=== PATIENT | male | born 1960 | race Caucasian/White ===

== ENCOUNTER 2024-06-25 15:40 | Outpatient (CLI) | payer OTHER, SELFPAY ==
--- NOTE | ~2024-06-25 | XR_ITS ---
EXAMINATION: XR_CERV2-3V_CR DATE: 06/25/2024 15:58 INDICATION: Radiculopathy, cervical region. TECHNIQUE: 4 views of cervical spine were obtained. COMPARISON: None. FINDINGS: Bone alignment is normal. There are changes of anterior fusion procedure from C5 to C7 with healed interbody bone graft and anterior plate and screws. Vertebral body heights are normal. There is mildly decreased disc height at C4-C5. There is multilevel facet joint osteoarthritis, severe on t he right at C3-C4 and on the left at C4-C5. There is mild central canal stenosis at C4-C5. No prevert ebral soft tissue swelling. IMPRESSION: 1. Mild cervical spondylosis. 2. Anterior fusion procedure from C5 to C7. Reviewed, dictated and finalized at location A.
--- NOTE | ~2024-06-25 | XR_ITS ---
EXAM: XR shoulder LT min 2V DATE: 06/25/2024 15:58 HISTORY: M25.512 - Pain in left shoulder . COMPARISON: None available. FINDINGS: ACDF hardware. Normal mineralization. No fracture or dislocation. No lytic or blastic lesio n. Joint spaces are maintained. No erosion or periosteal change. Soft tissues within normal limits. IMPRESSION: Unremarkable left shoulder radiograph findings. Reviewed, dictated and finalized at location K.
== END 2024-06-25 15:41 ==
PROVIDERS: PCP Clinical Nurse Specialist; Visit Provider Clinical Nurse Specialist
DX: M25.512 Pain in left shoulder (principal); M47.22 Other spondylosis with radiculopathy, cervical region; Z98.1 Arthrodesis status
CPT/HCPCS: 72040; 73030

== ENCOUNTER 2024-06-28 07:05 | Outpatient (CLI) | payer OTHER, SELFPAY ==
[2024-06-28 07:24] LABS: Basophils Percent Auto 0.5 % (0.2-1.2); Eosinophils Absolute Auto 0.2 K/mm3 (0-0.3); Eosinophils Percent Auto 2.7 % (0-4.4); Hematocrit 44.1 % (42.0-52.0); Immature Granulocyte Absolute 0.02 K/mm3 (0.00-0.031); Immature Granulocyte Percent A 0.3 % (0-0.5); Lymphocytes Absolute Auto 1.33 K/mm3 (0.9-3.2); Mean Corpuscular Hemoglobin 32.9 pg (26-34); Mean Corpuscular Volume 96.7 fl (80-100); Monocytes Absolute Auto 0.6 K/mm3 (0.1-0.6); Neutrophils Absolute Auto 4.2 K/mm3 (1.3-6.7); Neutrophils Percent Auto 65.5 % (45.5-73.1); Platelet Count Result 142 k/mm3 (150-375); Red Blood Count 4.56 M/mm3 (4.6-6.20); Red Cell Distribution Width 13.6 % (11.5-14.5); White Blood Count 6.3 K/mm3 (4.5-10.0)
[2024-06-28 07:37] LABS: Alanine Aminotransferase 88 U/L (6-50); Alkaline Phosphatase 54 U/L (38-126); Anion Gap 8 mmol/L (4-12); Aspartate Amino Transferase 56 U/L (17-59); Bilirubin,Total 1.4 mg/dL (0.2-1.3); Blood Urea Nitrogen 17 mg/dL (9-20); Calcium 8.8 mg/dL (8.4-10.2); Carbon Dioxide 27 mmol/L (22-30); Chloride 102 mmol/L (98-107); Cholesterol 157 mg/dL (0-200); Estimated Glomerular Filt Rate > 60; Glucose 108 mg/dL (65-110); HDL Direct 35 mg/dL; Potassium 4.3 mmol/L (3.4-5.0); Sodium 137 mmol/L (137-145); Triglycerides 118 mg/dL (<150)
[2024-06-28 07:49] LABS: LDL Cholesterol Direct 103 mg/dL
[2024-06-28 08:07] LABS: Prostate Specific Antigen 0.4 ng/mL (< OR = 4.0)
[2024-07-02 15:58] LABS: Testosterone Free 98.3 pg/mL (35.0-155.0); Testosterone Total 539 ng/dL (250-1100)
== END 2024-06-28 07:06 | disposition home or self-care (01) ==
PROVIDERS: PCP Clinical Nurse Specialist; Visit Provider Clinical Nurse Specialist
DX: E29.1 Testicular hypofunction (principal); N52.9 Male erectile dysfunction, unspecified; Z13.29 Encounter for screening for other suspected endocrine disorder; Z13.220 Encounter for screening for lipoid disorders; F41.9 Anxiety disorder, unspecified; Z12.5 Encounter for screening for malignant neoplasm of prostate
CPT/HCPCS: 36415; 80053; 80061; 84153; 84402; 84403; 84443; 85025; G0103

== ENCOUNTER 2024-07-12 08:48 | Outpatient (CLI) | payer OTHER, SELFPAY ==
--- NOTE | ~2024-07-12 | US_ITS ---
Limited Abdominal Sonogram: Real-time sonographic imaging of the right upper quadrant was performed. Clinical History: Fatty liver Findings: The liver appears echogenic, with no evidence of mass lesion or bile duct dilatation. It m easures 18.1 cm in length. Main portal vein demonstrates normal direction of flow. The gallbladder is well distended, and appears normal with no evidence of gallstone or wall thickening. The common bile duct measures 3 mm. The visualized pancreas, aorta, and IVC are unremarkable. Right kidney measures 10.5 cm in length, without hydronephrosis or renal stone. Impression: Diffuse fatty infiltration of the liver, with associated hepatomegaly. Reviewed, dictated and finalized at location M. Impression: Diffuse fatty infiltration of the liver, with associated hepatomegaly.
== END 2024-07-12 08:49 | disposition home or self-care (01) ==
LOC: ANHIMG 08:51
PROVIDERS: PCP Clinical Nurse Specialist; Visit Provider Clinical Nurse Specialist
DX: K76.0 Fatty (change of) liver, not elsewhere classified (principal); R16.0 Hepatomegaly, not elsewhere classified
CPT/HCPCS: 76705

== ENCOUNTER 2024-07-29 07:01 | Outpatient (CLI) | payer OTHER, SELFPAY ==
--- NOTE | ~2024-07-29 | MR_ITS ---
EXAMINATION: MR cervical spine wo con DATE: 07/29/2024 07:38 INDICATION: Radiculopathy, cervical region. TECHNIQUE: Magnetic resonance imaging (MRI) of the cervical spine was performed without intravenous c ontrast. COMPARISON: Cervical spine radiographs 06/25/2024 FINDINGS: Alignment is normal. There are changes of anterior fusion procedure from C5 to C7 with heal ed interbody bone graft and anterior plate and screws. Vertebral body heights are normal. There is mi ldly decreased disc height at C4-C5. The spinal cord signal intensity is normal. The following disc l evels are specifically discussed: C2-C3: The disc does not extend beyond the endplate margin. There is mild left uncovertebral joint os teoarthritis. There is severe bilateral facet joint osteoarthritis. There is mild left neural foramin al stenosis. There is no central canal stenosis. C3-C4: There is a central protrusion. There is mild right and moderate left uncovertebral joint osteo arthritis. There is severe right and moderate left facet joint osteoarthritis. There is mild bilatera l neural foraminal stenosis. There is no central canal stenosis. C4-C5: The disc is bulging. There is moderate right and severe left uncovertebral joint osteoarthriti s. There is severe bilateral facet joint osteoarthritis. There is mild right and moderate left neural foraminal stenosis. There is mild central canal stenosis. C5-C6: There is moderate bilateral uncovertebral joint hypertrophy. There is no facet joint hypertrop hy. There is mild bilateral neural foraminal stenosis. There is no central canal stenosis. C6-C7: There is mild bilateral uncovertebral joint hypertrophy. There is no facet joint hypertrophy. There is mild right neural foraminal stenosis. There is mild central canal stenosis. C7-T1: There is a central protrusion. There is mild bilateral uncovertebral joint osteoarthritis. The re is moderate right and severe left facet joint osteoarthritis. There is mild bilateral neural yvan inal stenosis. There is no central canal stenosis. IMPRESSION: 1. Moderate cervical spondylosis. 2. Anterior fusion procedure from C5 to C7. Reviewed, dictated and finalized at location A.
== END 2024-07-29 07:02 | disposition home or self-care (01) ==
LOC: MICIMG 07:01
PROVIDERS: PCP Clinical Nurse Specialist; Visit Provider Clinical Nurse Specialist
DX: M47.22 Other spondylosis with radiculopathy, cervical region (principal); Z98.1 Arthrodesis status
CPT/HCPCS: 72141

== ENCOUNTER 2024-12-17 07:43 | Outpatient (CLI) | payer OTHER, SELFPAY ==
--- NOTE | ~2024-12-17 | US_ITS ---
Limited Abdominal Sonogram: Real-time sonographic imaging of the right upper quadrant was performed. Clinical History: Diaphragmatic hernia Findings: The liver appears echogenic, with no evidence of mass lesion or bile duct dilatation. Main portal vein demonstrates normal direction of flow. The gallbladder is well distended, and appears no rmal with no evidence of gallstone or wall thickening. The common bile duct measures 4 mm. The visua lized pancreas, aorta, and IVC are unremarkable. Right kidney measures 10.8 cm in length, without russell dence of hydronephrosis or stone. Impression: Diffuse fatty infiltration of liver. Reviewed, dictated and finalized at location M. SANDER Impression: Diffuse fatty infiltration of liver.
== END 2024-12-17 07:44 | disposition home or self-care (01) ==
LOC: MICIMG 07:43
PROVIDERS: PCP Clinical Nurse Specialist; Visit Provider Surgery
DX: K21.9 Gastro-esophageal reflux disease without esophagitis (principal); K44.9 Diaphragmatic hernia without obstruction or gangrene; K76.0 Fatty (change of) liver, not elsewhere classified
CPT/HCPCS: 76705

== ENCOUNTER 2025-01-10 08:41 | Outpatient (CLI) | payer OTHER, SELFPAY | END 2025-01-10 08:42 | disposition home or self-care (01) | PROVIDERS: PCP Clinical Nurse Specialist; Visit Provider Surgery | DX: K44.9 Diaphragmatic hernia without obstruction or gangrene (principal); K21.9 Gastro-esophageal reflux disease without esophagitis | CPT/HCPCS: 74246 ==

== ENCOUNTER 2025-01-10 09:45 | Outpatient (CLI) | payer OTHER, SELFPAY | END 2025-01-10 09:46 | disposition home or self-care (01) | LOC: ANHSURGERY 09:53 | PROVIDERS: PCP Clinical Nurse Specialist; Visit Provider Surgery | DX: Z01.818 Encounter for other preprocedural examination (principal); K44.9 Diaphragmatic hernia without obstruction or gangrene | CPT/HCPCS: 36415; 86850; 86900; 86901 ==

== ENCOUNTER 2025-01-21 00:50 | Day surgery (SDC) | payer OTHER, SELFPAY ==
[2025-01-10 08:15] VITALS: BMI 27.6
--- NOTE | 2025-01-10 08:22 | PC.NURSE ---
Report to the Outpatient Waiting Room, entrance under the green pavilion located off [facility], at time _0630_ on date _[id number]_. Planned Procedure Time: _0830_.? Time changes happen often and if your time is changed the preop area will call you the afternoon before. - You and your visitor will be asked to self-screen and do not enter if you have any COVID symptoms. Please call surgeon if you need to reschedule. - A mask is optional within the hospital at this time. Clear liquids only starting evening meal before surgery. No solid food from this time until after surgery. Patients may have clear liquids (water, carbonated beverages, clear teas, apple juice) until 3 hours prior to surgery with a maximum of 20 ounces between midnight and 530am. No smoking, or chewing tobacco (or any form of nicotine). No chewing gum, candy or mints. Take only the following medications with a SIP of water on the morning of surgery: ___Buspirone, Duloxetine and if needed Flonase, DO NOT STOP ANY OF YOUR OTHER PRESCRIPTION MEDICATIONS PRIOR TO SURGERY EXCEPT THE FOLLOWING Hold all vitamins and supplements for 3 days per anesthesiologist. Medications to discontinue per physician Date to take last dose Please no make-up, nail slovenian, hairspray, perfume, deodorant, or body powder the day of surgery.? No jewelry (including any body piercings) or valuables the day of surgery, leave them at home.? Please take a shower or bath the night before, or the morning of, surgery with an antibacterial soap.? Wear comfortable, loose fitting clothing.? - Jewelry must be removed prior to entering the operating room.? Rings and piercings that are not removed may be cut off. - The hospital will not accept responsibility for valuables.? - Please leave all valuables, including medications, at home the day of surgery. If you are going home after surgery, a licensed cement mixer driver must drive you home.? - NO public transportation without another adult if you receive anesthesia. - We recommend that an adult stay with you for 24 hours following discharge. - We also recommend that you do not drive, make important decision, drink alcoholic beverages, or take any drugs that were not prescribed by your health care provider for at least 24 hours after your discharge time. Follow any additional instructions given to you from your surgeon. Telephone instructions given to __[place]___and asked if any additional questions and then verbalized understanding. Patient advised to call surgeon office or pre surgery nurse liaison [phone] if any additional questions.
[2025-01-21] VITALS (15 sets, daily range): BP systolic 108–155; BP diastolic 61–86; PULSE 55–80; RESP 12–20; TEMP 36.1–36.9; O2SAT 92–100
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
--- OUTSIDE RECORDS SUMMARY | 2025-01-21 00:53 | XMS_ITS | Continuity of Care Document ---
Author Name [facility] Organization [facility] Care Team Providers Care Glue Mixer Name Role Phone DOD-ME Unavailable Unavailable Problems Combined list of problems from Department of Defense and Veterans Affairs facilities. It does not include entries that were removed or entered in error. Problem Status Onset Date Problem Type Date of Resolution Comments Source Malignant melanoma Active 011 Condition Feb 27, 2014 Entered By: ANIA CH Comment: RIGHT EAR [facility] visit for: laboratory Inactive Condition [facility] upper back pain Active Condition [facility] back strain thoracic Inactive Condition DoD visit for: services physical Inactive Condition [facility] Allergy Sensitivity Testing Inactive Condition 46 pricks DoD gastroenteritis Active Condition Im i njection given in rt hip area without any complications by Ms. Acevedo. [facility] primary snoring Active Condition Pt w ith small airway, witnessed apnea, chronic snoring. -- PSG -- do not drive if sleepy DoD rhinitis chronic Active Condition [facility] , VMR gustatory type (rhinitis/PND/s neezing with temp change, eating, dust/wind), AR (no perception seasonality or sxs, but nose slightly erythematous during pecan season in [facility] and [facility] pecan, marshelder, and aspergilus only). Increase Atrovent to at least bid and use prn for food/temp triggers up to qid, cont Nasonex, with septum avoid educ, add singuliar in addition to Nasonex for possible AR component. CT scan neg (small mucus ret cyst only). f/u mgmt (consider increase atrovent to 0.06%, Astelin, Irrigation (even AH for AR component) in future if needed). 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 HP: pt. demonstrates understanding: cx ff with self op, posture, act mod, GOALS 1 wk 1. dec pain c/o greater than 30 % 2. increased aorm all planes [facility] allergic rhinitis Active Condition Ma y have small but currently clinically rel AR component as above [facility] foot pain (soft tissue) Inactive Condition [facility] Allergic Rhinitis (SCT 60650914) Active Condition [facility] Allergic rhinitis (SNOMED CT 16112717) Active Condition [facility] Anxiety (SCT 87439870) Active Condition [facility] Back pain Active Condition [facility] Cervical arthritis Active Condition [facility] Cervical radiculopathy Active Condition [facility] Chronic post-traumatic stress disorder following combat Active Condition [facility] Coccidioidomycosis * (ICD-9-CM 114.9) Active Condition [facility] Constipation (SCT 52189385) Active Condition [facility] Depression (SCT 85762070) Active Condition [facility] Elevated Liver Function Tests (ICD-9-CM 794.8) Active Condition [facility] Erectile Dysfunction (SCT 683704294) Active Condition [facility] Exposure to potentially hazardous substance Active Condition [facility] Fatty liver Active Condition [facility] Foot pain Active Condition [facility] GERD - Gastro-Esophageal Reflux Disease (SCT 446566438) Active Condition [facility] Headache * (ICD-9-CM 784.0) Active Condition [facility] Indigestion Active Condition 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 Low back pain Active Condition [facility] Male erectile disorder (SNOMED CT 318256386) Active Condition [facility] Malignant melanoma Active Condition [facility] Muscle Spasm (ICD-9-CM 728.85) Active Condition [facility] Obstructive Sleep Apnea of Adult (SCT 0709082942663) Active Condition [facility] Sleep apnea Active Condition Feb 27, 2014 Entered By: ANIA CH Comment: On C-PapOct 2021 Entered By: GONZÁLEZ JIN II Comment: Resmed Airsense 10; 10 CWP; Airfit F30 MED [facility] Tendinitis * (ICD-9-CM 726.90) Active Condition Oct 25 Entered By: LAURY ISSA Comment: right thumb [facility] Tinnitus Active Condition [facility] Torticollis (SNOMED CT 61594274) Active Condition Feb 27, 2014 Entered By: ANIA CH Comment: C5/C7 injury and fusion 06/17 [facility] Diagnosis: ICD-10-CM F32.A Depression, unspecified Active Diagnosis [facility] Diagnosis: ICD-10-CM M54.2 Cervicalgia Active Diagnosis [facility] Diagnosis: ICD-10-CM M54.12 Radiculopathy, cervical region Active Diagnosis [facility] Diagnosis: ICD-10-CM M25.512 Pain in left shoulder Active Diagnosis [facility] Diagnosis: ICD-10-CM F43.12 Post-traumatic stress disorder, chronic Active Diagnosis [facility] Diagnosis: ICD-10-CM K21.9 Gastro-esophageal reflux disease without esophagitis Active Diagnosis [facility] Diagnosis: ICD-10-CM Z01.818 Encounter for other preprocedural examination Active Diagnosis [facility] Diagnosis: ICD-10-CM F41.9 Anxiety disorder, unspecified Active Diagnosis [facility] Diagnosis: ICD-10-CM F43.9 Reaction to severe stress, unspecified Active Diagnosis [facility] Diagnosis: ICD-10-CM Y99.[address] [facility] Medications Combined list of outpatient medications from Department of Defense and Veterans Affairs facilities.Medications provided include 1) outpatient medications from the last 15 months, and 2) patient-reported medications. Medication Details Route Status Patient Instructions Prescription Expires Prescription Number Last Dispense Date Ordering Provider Order Date Order Qty Source BISACODYL 5 MG ORAL TBEC TAKE FOUR TABLETS BY MOUTH ONE TIME AT 4PM ON DAY PRIOR TO TEST. CALL FOR QUESTION S. 02/04/2024 [id number] KADEN TORIN Phan 2023 4 [facility] BISACODYL 5 MG ORAL TBEC TAKE FOUR TABLETS BY MOUTH ONE TIME AT 4PM ON DAY PRIOR TO TEST. CALL [phone] FOR QUESTION S. 02/04/2024 [id number] 4 TORIN ALFONSO H 2023 4 [facility] BISACODYL 5MG TAB,EC TAKE FOUR TABLETS BY MOUTH ONE TIME AT 4PM ON DAY PRIOR TO TEST. CALL FOR QUESTION S. ORAL 02/04/2024 [id number] 4 KADENJonathan MEDRANO H 2023 4 [facility] busPIRone (U/D) 10 MG ORAL TAB TAKE ONE-HALF TABLET BY MOUTH TWICE A DAY FOR 7 DAYS, THEN TAKE ONE TABLET TWICE A DAY FOR 30 DAYS FOR ANXIETY DO NOT TAKE WITH GRAPEFRU IT JUICE. TAKE IN AM AND APPROXIM ATELY 6 TO 8 HOURS LATER Active 03/29/2025 [id number] 4 TORIN NELSON 2023 67 [facility] BUSPIRONE HCL 10MG TAB TAKE ONE TABLET BY MOUTH ONCE A DAY FOR ANXIETY DO NOT TAKE WITH GRAPEFRU IT JUICE. ORAL SUSPEND ED 12/24/2025 [id number] 5 LOITERSTE INTIBURCIO A 2024 90 [facility] BUSPIRONE HCL 10MG TAB TAKE ONE-HALF TABLET BY MOUTH TWICE A DAY FOR 7 DAYS, THEN TAKE ONE TABLET TWICE A DAY FOR 30 DAYS FOR ANXIETY DO NOT TAKE WITH GRAPEFRU IT JUICE. TAKE IN AM AND APPROXIM ATELY 6 TO 8 HOURS LATER ORAL DISCONT INUED (EDIT) 03/29/2025 [id number] 4 TORIN NELSON 2023 67 [facility] CALCIUM CARBONATE 500MG TAB,CHEWABL E CHEW THREE TABLETS BY MOUTH THREE TIMES A DAY WITH MEALS NEEDED ORAL ACTIVE EMMA GRAYSON 2021 [facility] CAMPHOR/MEN THOL/METHYL SALICYLATE PATCH APPLY 1 PATCH TO SKIN SITE ONCE A DAY (EXTERNA L USE ONLY) TRANSD ERMAL ACTIVE 06/27/2025 [id number] 4 ERAN CAMPOS 2023 60 [facility] CETIRIZINE (U/D) 10 MG ORAL TAB TAKE ONE TABLET BY MOUTH ONCE A DAY FOR ALLERGY SYMPTOMS 12/28/2024 [id number] 4 [facility] ERAN 2023 90 [facility] CETIRIZINE HCL 10MG TAB TAKE ONE TABLET BY MOUTH ONCE A DAY FOR ALLERGY SYMPTOMS ORAL 12/28/2024 [id number] 4 [facility]23 90 [facility] Compounded Prilosec Capsule Conventiona l 20 mg Oral TAKE ONE CAPSULE BY MOUTH EVERY MORNING BEFORE A MEAL FOR GASTROES OPHAGEAL REFLUX DISEASE TAKE 30 MINUTES PRIOR TO FOOD. 12/28/2024 [id number] 4 [facility] ERAN 2023 90 [facility] DULoxetine 60 MG ORAL CPDR TAKE ONE CAPSULE BY MOUTH EVERY DAY FOR ANXIETY REPLAC ES SERTRALI NE 12/15/2024 [id number] 4 ZAC ERICKSON 2023 60 [facility] DULOXETINE HCL 30MG CAP,EC TAKE THREE CAPSULES BY MOUTH ONCE A DAY DO NOT ABRUPTLY DISCONTI NUE MEDICATI ON. ORAL DISCONT INUED (EDIT) 01/25/2025 [id number] 4 TORIN NELSON 2023 270 [facility] DULOXETINE HCL 60MG CAP,EC TAKE ONE CAPSULE BY MOUTH ONCE A DAY DO NOT ABRUPTLY DISCONTI NUE MEDICATI ON. ORAL SUSPEND ED 06/07/2025 [id number] 5 TORIN NELSON 2024 90 [facility] DULOXETINE HCL 60MG CAP,EC TAKE ONE CAPSULE BY MOUTH EVERY DAY FOR ANXIETY REPLAC ES SERTRALI NE ORAL 12/15/2024 [id number] MARTA ERICKSON 2023 60 [facility] FLUTICASONE PROPIONATE 50MCG/SPRAY SOLN,NASAL, 16GM USE 2 SPRAYS IN EACH NOSTRIL EVERY DAY FOR NASAL ALLERGIE S NASAL 06/08/2024 [id number] ANURAG MEYER M 2022 3 [facility] CB IRX: Tadalafil 20 mg vs Placebo Tablet Oral TAKE ONE TABLET BY MOUTH TWO TIMES PER WEEK NEEDED FOR ERECTILE DYSFUNCT ION (TAKE 30 MINUTES PRIOR TO SEXUAL ACTIVITY ) - LIMIT 6 DOSES PER 30 DAYS 12/28/2024 [id number] 4 ERAN CAMPOS 2023 18 [facility] LORazepam (U/D) 0.5 MG ORAL TAB TAKE ONE-HALF TABLET BY MOUTH ONCE A DAY NEEDED FOR ANXIETY 02/24/2024 [id number] 4 TORIN NELSON 2023 10 [facility] LORAZEPAM 0.5MG TAB TAKE ONE-HALF TABLET BY MOUTH ONCE A DAY NEEDED FOR ANXIETY ORAL 02/24/2024 [id number] 4 TORIN NELSON 2023 10 [facility] OMEPRAZOLE 20MG CAP,EC TAKE ONE CAPSULE BY MOUTH EVERY MORNING BEFORE A MEAL FOR GASTROES OPHAGEAL REFLUX DISEASE TAKE 30 MINUTES PRIOR TO FOOD. ORAL 12/28/2024 [id number] 4 ERAN CAMPOS 2023 90 [facility] POLYETHYLEN E GLYCOL 3350 PWDR,ORAL MIX AND DRINK CONTENTS OF BOTTLE BY MOUTH DIRECTED (ON THE DAY BEFORE YOUR TEST ONLY DRINK CLEAR LIQUIDS- NO SOLID FOOD! AT 4PM TAKE THE BISACODY L TABLETS AND MIX THE BOTTLE OF POWDER IN 64 OZ OF GATORADE (NOT RED) AND REFRIGER ATE. AT 7PM, DRINK HALF OF THE MIXTURE. REFRIGER ATE OVERNIGH T. DRINK REMAINDE R 3 HOURS BEFORE LEAVING HOME FOR TEST. READ YOUR MAILED INSTRUCT ION SHEET!) (ON THE DAY BEFORE YOUR TEST ONLY DRINK CLEAR LIQUIDS- NO SOLID FOOD! AT 4PM TAKE THE BISACODY L TABLETS AND MIX THE BOTTLE OF POWDER IN 64 OZ OF GATORADE (NOT RED) AND REFRIGER ATE. AT 7PM, DRINK HALF OF THE MIXTURE. REFRIGER ATE OVERNIGH T. DRINK REMAINDE R 3 HOURS BEFORE LEAVING HOME FOR TEST. READ YOUR MAILED INSTRUCT ION SHEET!) ORAL 02/04/2024 [id number] 4 Jonathan ALFONSO H 2023 238 [facility] PREGABALIN 50MG CAP,ORAL TAKE ONE CAPSULE BY MOUTH TWICE A DAY FOR NERVE PAIN *MAY CAUSE DROWSINE SS* ORAL 12/27/2024 [id number] 4 ERAN CAMPOS 2023 60 [facility] PSYLLIUM PWDR,ORAL MIX AND DRINK 2 TEASPOON FULS BY MOUTH ONCE A DAY FOR FIBER SUPPLEME NTATION MIX IN GLASS OF WATER/JU ICE. FLAVOR SUBSTITU TIONS MAY/WILL OCCUR AND SPECIFIC VARIETIE S WILL NOT BE PROVIDED . ORAL 12/28/2024 [id number] 4 ERAN CAMPOS 2023 1170 [facility] SERTRALINE HCL 100MG TAB TAKE ONE TABLET BY MOUTH EVERY DAY FOR ANXIETY ORAL DISCONT INUED BY PROVIDE R 10/20/2024 [id number] MARTA ERICKSON 2022 90 [facility] simethicone 80 MG ORAL CHEW CHEW AND SWALLOW FOUR TABLETS BY MOUTH DIRECTED FOR GAS DISCOMFO RT FOR TWO DOSES BEFORE GI PROCEDUR E 02/04/2024 [id number] 4 TORIN ALFONSO 2023 8 [place] [facility] simethicone 80 MG ORAL CHEW CHEW AND SWALLOW FOUR TABLETS BY MOUTH DIRECTED FOR GAS DISCOMFO RT FOR TWO DOSES BEFORE GI PROCEDUR E 02/04/2024 [id number] TORIN [address]SO [address] [facility] SIMETHIC[facility] 80MG TAB,CHEW CHEW AND SWALLOW FOUR TABLETS BY MOUTH DIRECTED FOR GAS DISCOMFO RT FOR TWO DOSES BEFORE GI PROCEDUR E ORAL 02/04/2024 [id number] 4 WHITNEYMAIKELJonathan MARCELA Emilie 2023 8 [facility] SO-PEG 3350-BOWEL 2,TWO PART PREP--PO SO MIX AND DRINK CONTENTS OF BOTTLE BY MOUTH DIRECTED (ON THE DAY BEFORE YOUR TEST ONLY DRINK CLEAR LIQUIDS- NO SOLID FOOD! AT 4PM TAKE THE BISACODY L TABLETS AND MIX THE BOTTLE OF POWDER IN 64 OZ OF 02/04/2024 [id number] 4 TORIN ALFONSO 2023 238 [facility] SO-PEG 3350-BOWEL 2,TWO PART PREP--PO SO MIX AND DRINK CONTENTS OF BOTTLE BY MOUTH DIRECTED (ON THE DAY BEFORE YOUR TEST ONLY DRINK CLEAR LIQUIDS- NO SOLID FOOD! AT 4PM TAKE THE BISACODY L TABLETS AND MIX THE BOTTLE OF POWDER IN 64 OZ OF 02/04/2024 [id number] 4 TORIN ALFONSO 2023 238 [facility] TADALAFIL 20MG TAB TAKE ONE TABLET BY MOUTH TWO TIMES PER WEEK NEEDED FOR ERECTILE DYSFUNCT ION (TAKE 30 MINUTES PRIOR TO SEXUAL ACTIVITY ) - LIMIT 6 DOSES PER 30 DAYS ORAL 12/28/2024 [id number] 4 ERAN CAMPOS 2023 18 [facility] Allergies, Adverse Reactions, Alerts Combined list of allergies from Department of Defense and Veterans Affairs facilities. It does not include entries that were removed or entered in error. Substance Category Reaction Severity Reaction type Status Date Reported Comments Source ANALGESIC BALM Propensity to adverse reactions to drug (finding) Eruption active [address] [facility] THERA-GESIC (METHYL SALICYLATE/ [place]) Drug allergy (disorder) Unknown active 7 [employer] Immunizations Combined list of available immunizations from the Department of Defense and Veterans Affairs facilities. Immunization Series Date Given Administered By Site Reaction Lot Number CVX Code Drug Psychotherapist Social Worker Status Comments Source TDAP 2023 LIBERTY GALO LEFT DELTO ID [id number] 115 complet ed [facility] INFLUENZA, INJECTABLE, MDCK, PRESERVATIVE FREE, QUADRIVALENT 2022 LEFT ARM 171 complet ed Lot#: [id number] Mfr: [employer]QIR[employer] [facility] COVID-19 (MODERNA), MRNA, LNP-S, BIVALENT BOOSTER, PF, 50 MCG/0.5 ML OR 25MCG/0.25 ML DOSE 1 [address] [facility] COVID-19 (MODERNA), MRNA, LNP-S, BIVALENT, PF, 50 MCG/0.5 ML OR 25MCG/0.25 ML DOSE 3 [address] [facility] INFLUENZA, INJECTABLE, MDCK, PRESERVATIVE FREE, QUADRIVALENT 5 [address] [facility] INFLUENZA, UNSPECIFIED FORMULATION [address] [facility] COVID-19, mRNA, LNP-S, PF, 100 mcg or 50 mcg dose 2021 JESS [employer] (MOD) Not Given COVID-19, mRNA, LNP-S, PF, 100 mcg or 50 mcg dose [facility] COVID-19 (MODERNA), MRNA, LNP-S, PF, 100 MCG/0.5ML DOSE OR 50 MCG/0.25ML DOSE 2 [address] [facility] COVID-19, mRNA, LNP-S, PF, 100 mcg or 50 mcg dose 2020 BRANDI, [employer] (MOD) Not Given COVID-19, mRNA, LNP-S, PF, 100 mcg or 50 mcg dose [facility] COVID-19 (MODERNA), MRNA, LNP-S, PF, 100 MCG/0.5ML DOSE OR 50 MCG/0.25ML DOSE 1 2020 207 complet ed [facility] INFLUENZA, UNSPECIFIED FORMULATION 2020 88 complet ed [facility] INFLUENZA, RECOMBINANT, QUADRIVALENT, INJECTABLE, PRESERVATIVE FREE 4 2020 185 complet ed [facility] COVID-19 (MODERNA), MRNA, LNP-S, PF, 100 MCG/0.5 ML DOSE 2 2020 207 complet ed MOD; [id number]; 1 [facility] COVID-19 (MODERNA), MRNA, LNP-S, PF, 100 MCG/0.5 ML DOSE 1 2020 207 complet ed MOD; [id number]; 1 [facility] influenza, injectable, quadrivalent, preservative free 2019 JANINE, () Not Given influenza , injectabl e, quadrival ent, preservat cisco free DoD INFLUENZA, INJECTABLE, QUADRIVALENT, PRESERVATIVE FREE 3 2019 150 complet ed [facility] INFLUENZA, SEASONAL, INJECTABLE, PRESERVATIVE FREE 2018 140 complet ed [facility] ZOSTER RECOMBINANT 2 2018 187 complet ed [facility] ZOSTER RECOMBINANT 1 2018 187 complet ed [facility] INFLUENZA, UNSPECIFIED FORMULATION 2017 88 complet ed [facility] INFLUENZA, UNSPECIFIED FORMULATION 2017 88 complet ed [facility] TD(ADULT) UNSPECIFIED FORMULATION 2017 139 complet ed [facility] INFLUENZA, SEASONAL, INJECTABLE, PRESERVATIVE FREE 2016 NONE [address] [facility] TDAP 2016 NONE [address] [facility] INFLUENZA, SEASONAL, INJECTABLE, PRESERVATIVE FREE 2 [address] [facility] INFLUENZA, TRIVALENT, ADJUVANTED 1 2012 168 complet ed [facility] INFLUENZA, UNSPECIFIED FORMULATION 2009 88 complet ed [facility] TD (ADULT) 1 [address] [facility] FLU,3 YRS (HISTORICAL) [address] [facility] DTAP, UNSPECIFIED FORMULATION [address] [facility] INFLUENZA, UNSPECIFIED FORMULATION [address] [facility] influenza virus vaccine, live, attenuated, for intranasal use 1 2005 Unknown, Provider [id number] [employer] (MED) complet influenza virus vaccine, live, attenuate d, for intranasa l use DoD influenza virus vaccine, live, attenuated, for intranasal use 1 2004 Unknown, Provider [id number] [employer] (MED) complet influenza virus vaccine, live, attenuate d, for intranasa l use [facility] tuberculin skin test; purified protein derivative solution, intradermal 1 2003 Unknown, Provider [id number] [place] (PD) complet ed tuberculi n skin test; purified protein derivativ e solution, intraderm al DoD influenza virus vaccine, whole virus 1 2002 Unknown, Provider [id number] [employer] (PW) complet ed influenza virus vaccine, whole virus DoD anthrax vaccine 5 2002 Unknown, Provider [id number] [employer] Hoffman (MIP) complet ed anthrax vaccine DoD anthrax vaccine 4 2002 Unknown, Provider [id number] [employer] Teressa (MIP) complet ed anthrax vaccine DoD anthrax vaccine 3 2001 Unknown, Provider [id number] [employer] Teressa (MIP) complet ed anthrax vaccine DoD anthrax vaccine 2 2001 Unknown, Provider [id number] [employer] Hoffman (MIP) complet ed anthrax vaccine DoD influenza virus vaccine, whole virus 1 2001 Unknown, Provider [id number] Sanofi Pasteur ([facility]) complet ed influenza virus vaccine, whole virus DoD anthrax vaccine 1 2001 Unknown, Provider [id number] ([place]) complet ed anthrax vaccine DoD tuberculin skin test; purified protein derivative solution, intradermal 1 2001 Unknown, Provider [id number] Sanofi Pasteur ([facility]) complet ed tuberculi n skin test; purified protein derivativ e solution, intraderm al DoD influenza virus vaccine, whole virus 1 2000 Unknown, Provider [id number] Sanofi Pasteur ([facility]) complet ed influenza virus vaccine, whole virus DoD typhoid vaccine, parenteral, other than acetone-kille d, dried 1 2000 Unknown, Provider [id number] Roberto Carlosofi Pasteur ([facility]) complet ed typhoid vaccine, parentera l, other than acetone-k illed, dried DoD meningococcal polysaccharid e vaccine (MPSV4) 1 2000 Unknown, Provider [id number] Sanofi Pasteur ([facility]) complet ed meningoco ccal polysacch aride vaccine (MPSV4) [facility] influenza virus vaccine, whole virus 1 1999 Unknown, Provider [id number] 16 Thuy ([facility]) complet ed influenza virus vaccine, whole virus [facility] TD(ADULT) UNSPECIFIED FORMULATION 1998 139 complet ed [facility] tetanus and diphtheria toxoids, adsorbed, preservative free, for adult use (2 Lf of tetanus toxoid and 2 Lf of diphtheria toxoid) 1 1998 Unknown, Provider [id number] Tiffany (CON) complet ed tetanus and diphtheri a toxoids, adsorbed, preservat cisco free, for adult use (2 Lf of tetanus toxoid and 2 Lf of diphtheri a toxoid) [facility] influenza virus vaccine, whole virus 1 1998 Unknown, Provider [id number] Thuy ([facility]) complet ed influenza virus vaccine, whole virus [facility] typhoid vaccine, parenteral, other than acetone-kille d, dried 1 1998 Unknown, Provider [id number] Sanofi Pasteur ([facility]) complet ed typhoid vaccine, parentera l, other than acetone-k illed, dried [facility] influenza virus vaccine, whole virus 1 1997 Unknown, Provider [id number] 16 Tiffany (CON) complet ed influenza virus vaccine, whole virus [facility] hepatitis A vaccine, adult dosage 2 1996 Unknown, Provider 52 () complet ed hepatitis A vaccine, adult dosage [facility] tuberculin skin test; purified protein derivative solution, intradermal 1 1996 Unknown, Provider 96 () complet ed tuberculi n skin test; purified protein derivativ e solution, intraderm al [facility] influenza virus vaccine, whole virus 1 1996 Unknown, Provider [id number] [employer] (Inactive) ([place]) complet ed influenza virus vaccine, whole virus [facility] yellow fever vaccine 1 1995 Unknown, Provider 37 () complet ed yellow fever vaccine DoD tuberculin skin test; purified protein derivative solution, intradermal 1 1995 Unknown, Provider 96 () complet ed tuberculi n skin test; purified protein derivativ e solution, intraderm al DoD hepatitis A vaccine, adult dosage 1 1995 Unknown, Provider 52 () complet ed hepatitis A vaccine, adult dosage [facility] typhoid vaccine, parenteral, acetone-kille d, dried ([place] ) 1 1995 Unknown, Provider 53 () complet typhoid vaccine, parentera l, acetone-k illed, dried ([place] ) [facility] influenza virus vaccine, whole virus 1 1995 Unknown, Provider 16 () complet influenza virus vaccine, whole virus [facility] trivalent poliovirus vaccine, live, oral 1 1988 Unknown, Provider 02 () complet trivalent polioviru s vaccine, live, oral [facility] trivalent poliovirus vaccine, live, oral 5 1988 Unknown, Provider 02 () complet trivalent polioviru s vaccine, live, oral [facility] tetanus and diphtheria toxoids, adsorbed, preservative free, for adult use (2 Lf of tetanus toxoid and 2 Lf of diphtheria toxoid) 1 1987 Unknown, Provider 09 () complet tetanus and diphtheri a toxoids, adsorbed, preservat cisco free, for adult use (2 Lf of tetanus toxoid and 2 Lf of diphtheri a toxoid) [facility] Results Combined list of recent chemistry, hematology and other laboratory results from Department of Defense and Veterans Affairs, ranging from 15 months to all on record, depending upon the facility. Order Name Results Value Reference Range Date Interpretation Specimen Comments Source BASIC METABOLIC PANEL CREATININE [MASS/VOLUM E] IN SERUM OR PLASMA 1.03 mg/dL 0.7 - 1.3 12/28 Specimen Type: PLASMA Comment: No hemolysis noted. Ordering Provider: Diaz CAMPOS Report Released Date/Time: Dec 28, 2023 01:43 PM Reporting Lab: [facility] [address] [facility] [address] Performing Lab: [facility] [address] [facility] [address] [facility] BASIC METABOLIC PANEL UREA NITROGEN [MASS/VOLUM E] IN SERUM OR PLASMA 16.0 mg/dL 9.0 - 25.0 12/28 Specimen Type: PLASMA Comment: No hemolysis noted. Ordering Provider: Diaz CAMPOS Report Released Date/Time: Dec 28, 2023 01:43 PM Reporting Lab: [facility] [address] [facility] [address] Performing Lab: [place] [address] [facility] [address] [facility] BASIC METABOLIC PANEL GLUCOSE [MASS/VOLUM E] IN SERUM OR PLASMA 97 mg/dL 72 - 99 12/28 Specimen Type: PLASMA Comment: No hemolysis noted. Ordering Provider: Diaz CAMPOS Report Released Date/Time: Dec 28, 2023 01:43 PM Reporting Lab: [facility] [address] [facility] [address] Performing Lab: [facility] [address] [facility] [address] [facility] BASIC METABOLIC PANEL SODIUM [MOLES/VOLU ME] IN SERUM OR PLASMA 138 meq/L 136 - 145 12/28 Specimen Type: PLASMA Comment: No hemolysis noted. Ordering Provider: Diaz CAMPOS Report Released Date/Time: Dec 28, 2023 01:43 PM Reporting Lab: [facility] [address] [facility] [address] Performing Lab: [facility] [address] [facility] [address] [facility] BASIC METABOLIC PANEL POTASSIUM [MOLES/VOLU ME] IN SERUM OR PLASMA 3.9 meq/L 3.5 - 5 12/28 Specimen Type: PLASMA Comment: No hemolysis noted. Ordering Provider: Diaz CAMPOS Report Released Date/Time: Dec 28, 2023 01:43 PM Reporting Lab: [facility] [address] [facility] [address] Performing Lab: [facility] [address] [place] [phone] [facility] BASIC METABOLIC PANEL CHLORIDE [MOLES/VOLU ME] IN SERUM OR PLASMA 105 meq/L 98 - 107 12/28 Specimen Type: PLASMA Comment: No hemolysis noted. Ordering Provider: Diaz CAMPOS Report Released Date/Time: Dec 28, 2023 01:43 PM Reporting Lab: [facility] [address] [place] [phone] Performing Lab: [address] [address] [facility] BASIC METABOLIC PANEL CARBON DIOXIDE, TOTAL [MOLES/VOLU ME] IN SERUM OR PLASMA 24 meq/L 22 - 31 12/28 Specimen Type: PLASMA Comment: No hemolysis noted. Ordering Provider: Diaz CAMPOS Report Released Date/Time: Dec 28, 2023 01:43 PM Reporting Lab: [facility] [address] [place] [phone] Performing Lab: [facility] [address] [place] [phone] [facility] BASIC METABOLIC PANEL CALCIUM [MASS/VOLUM E] IN SERUM OR PLASMA 9.1 mg/dL 8.4 - 10.4 12/28 Specimen Type: PLASMA Comment: No hemolysis noted. Ordering Provider: Diaz CAMPOS Report Released Date/Time: Dec 28, 2023 01:43 PM Reporting Lab: [facility] [address] [place] [phone] Performing Lab: [facility] [address] [place] [phone] [facility] BASIC METABOLIC PANEL GLOMERULAR FILTRATION RATE/1.73 SQ M.PREDICTED [VOLUME RATE/AREA] IN SERUM, PLASMA OR BLOOD BY CREATININE- BASED FORMULA (CKD-EPI 2020) 82.1 60 12/28 Specimen Type: PLASMA Comment: No hemolysis noted. Ordering Provider: Diaz CAMPOS Report Released Date/Time: Dec 28, 2023 01:43 PM Reporting Lab: [facility] [address] [facility] [address] Performing Lab: [facility] [address] [place] [phone] [facility] CBC LEUKOCYTES [#/VOLUME] IN BLOOD BY AUTOMATED COUNT 5.9 10*3/u L 3.6 - 11.2 12/28 Specimen Type: BLOOD Comment: No clots detected. Ordering Provider: Diaz CAMPOS Report Released Date/Time: Dec 28, 2023 01:43 PM Reporting Lab: [address] [address] Performing Lab: [address] [phone] [place] [address] CBC ERYTHROCYTE S [#/VOLUME] IN BLOOD BY AUTOMATED COUNT 4.46 10*6/u L 4.10 - 5.70 12/28 Specimen Type: BLOOD Comment: No clots detected. Ordering Provider: Diaz CAMPOS Report Released Date/Time: Dec 28, 2023 01:43 PM Reporting Lab: [facility] [address] [place] [phone] Performing Lab: [address] [address] [facility] CBC HEMOGLOBIN [MASS/VOLUM E] IN BLOOD 14.2 g/dL 13.1 - 16.8 12/28 Specimen Type: BLOOD Comment: No clots detected. Ordering Provider: Diaz CAMPOS Report Released Date/Time: Dec 28, 2023 01:43 PM Reporting Lab: [facility] [address] [place] [phone] Performing Lab: [facility] [address] [place] [phone] [facility] CBC HEMATOCRIT [VOLUME FRACTION] OF BLOOD 42.7 38.2 - 48.4 12/28 Specimen Type: BLOOD Comment: No clots detected. Ordering Provider: Diaz CAMPOS Report Released Date/Time: Dec 28, 2023 01:43 PM Reporting Lab: [facility] [address] [place] [phone] Performing Lab: [facility] [address] [place] [phone] [facility] CBC MCV [ENTITIC VOLUME] BY AUTOMATED COUNT 95.7 fL 80.0 - 100.0 12/28 Specimen Type: BLOOD Comment: No clots detected. Ordering Provider: Diaz CAMPOS Report Released Date/Time: Dec 28, 2023 01:43 PM Reporting Lab: [facility] [address] [place] [phone] Performing Lab: [facility] [address] [place] [phone] [place] [address] CBC MCH [ENTITIC MASS] BY AUTOMATED COUNT 31.8 pg 27.0 - 34.0 12/28 Specimen Type: BLOOD Comment: No clots detected. Ordering Provider: Diaz CAMPOS Report Released Date/Time: Dec 28, 2023 01:43 PM Reporting Lab: [facility] [address] [place] [phone] Performing Lab: [facility] [address] [place] [phone] [facility] CBC MCHC [MASS/VOLUM E] BY AUTOMATED COUNT 33.3 g/dL 33.0 - 36.0 12/28 Specimen Type: BLOOD Comment: No clots detected. Ordering Provider: Diaz CAMPOS Report Released Date/Time: Dec 28, 2023 01:43 PM Reporting Lab: [facility] [address] [place] [phone] Performing Lab: [facility] [address] [place] [phone] [facility] CBC PLATELETS [#/VOLUME] IN BLOOD BY AUTOMATED COUNT 137 10*3/u L 150 - 400 12/28 L Specimen Type: BLOOD Comment: No clots detected. Ordering Provider: Diaz CAMPOS Report Released Date/Time: Dec 28, 2023 01:43 PM Reporting Lab: [facility] [address] [place] [phone] Performing Lab: [facility] [address] [place] [phone] [facility] CBC PLATELET MEAN VOLUME [ENTITIC VOLUME] IN BLOOD BY AUTOMATED COUNT 11.8 fL 7.5 - 11.2 12/28 H Specimen Type: BLOOD Comment: No clots detected. Ordering Provider: Diaz CAMPOS Report Released Date/Time: Dec 28, 2023 01:43 PM Reporting Lab: [facility] [address] [place] [phone] Performing Lab: [facility] [address] [place] [phone] [place] [address] CBC ERYTHROCYTE DISTRIBUTIO N WIDTH [RATIO] BY AUTOMATED COUNT 13.5 11.8 - 15.1 12/28 Specimen Type: BLOOD Comment: No clots detected. Ordering Provider: Diaz CAMPOS Report Released Date/Time: Dec 28, 2023 01:43 PM Reporting Lab: [facility] [address] [place] [phone] Performing Lab: [facility] [address] [place] [phone] [facility] CBC LYMPHOCYTES /100 LEUKOCYTES IN BLOOD BY AUTOMATED COUNT 20 12/28 Specimen Type: BLOOD Comment: No clots detected. Ordering Provider: Diaz CAMPOS Report Released Date/Time: Dec 28, 2023 01:43 PM Reporting Lab: [facility] [address] [place] [phone] Performing Lab: [facility] [address] [place] [phone] [facility] CBC MONOCYTES/1 00 LEUKOCYTES IN BLOOD BY AUTOMATED COUNT 12 12/28 Specimen Type: BLOOD Comment: No clots detected. Ordering Provider: Diaz CAMPOS Report Released Date/Time: Dec 28, 2023 01:43 PM Reporting Lab: [facility] [address] [facility] [address] Performing Lab: [facility] [address] [facility] [phone] [facility] CBC NEUTROPHILS /100 LEUKOCYTES IN BLOOD BY AUTOMATED COUNT 67 12/28 Specimen Type: BLOOD Comment: No clots detected. Ordering Provider: Diaz CAMPOS Report Released Date/Time: Dec 28, 2023 01:43 PM Reporting Lab: [facility] [address] [facility] [address] Performing Lab: [facility] [address] [facility] [phone] [place] [address] CBC EOSINOPHILS /100 LEUKOCYTES IN BLOOD BY AUTOMATED COUNT 1 12/28 Specimen Type: BLOOD Comment: No clots detected. Ordering Provider: Diaz CAMPOS Report Released Date/Time: Dec 28, 2023 01:43 PM Reporting Lab: [facility] [address] [facility] [address] Performing Lab: [facility] [address] [place] [phone] [facility] CBC BASOPHILS/1 00 LEUKOCYTES IN BLOOD BY AUTOMATED COUNT 1 12/28 Specimen Type: BLOOD Comment: No clots detected. Ordering Provider: Diaz CAMPOS Report Released Date/Time: Dec 28, 2023 01:43 PM Reporting Lab: [facility] [address] [facility] [address] Performing Lab: [facility] [address] [facility] [address] [facility] CBC LYMPHOCYTES [#/VOLUME] IN BLOOD BY AUTOMATED COUNT 1.19 10*3/u L 0.77 - 4.50 12/28 Specimen Type: BLOOD Comment: No clots detected. Ordering Provider: Diaz CAMPSO Report Released Date/Time: Dec 28, 2023 01:43 PM Reporting Lab: [facility] [address] [place] [phone] Performing Lab: [facility] [address] [facility] [address] [facility] CBC MONOCYTES [#/VOLUME] IN BLOOD BY AUTOMATED COUNT 0.68 10*3/u L 0.19 - 0.80 12/28 Specimen Type: BLOOD Comment: No clots detected. Ordering Provider: Diaz CAMPOS Report Released Date/Time: Dec 28, 2023 01:43 PM Reporting Lab: [facility] [address] [place] [phone] Performing Lab: [address] [phone] [place] [address] CBC NEUTROPHILS [#/VOLUME] IN BLOOD BY AUTOMATED COUNT 3.93 10*3/u L 2.10 - 8.00 12/28 Specimen Type: BLOOD Comment: No clots detected. Ordering Provider: Diaz CAMPOS Report Released Date/Time: Dec 28, 2023 01:43 PM Reporting Lab: [facility] [address] [place] [phone] Performing Lab: [address] [phone] [facility] CBC EOSINOPHILS [#/VOLUME] IN BLOOD BY AUTOMATED COUNT 0.06 10*3/u L 0.00 - 0.60 12/28 Specimen Type: BLOOD Comment: No clots detected. Ordering Provider: Diaz CAMPOS Report Released Date/Time: Dec 28, 2023 01:43 PM Reporting Lab: [facility] [address] [place] [phone] Performing Lab: [facility] [address] [place] [phone] [facility] CBC BASOPHILS [#/VOLUME] IN BLOOD BY AUTOMATED COUNT 0.04 10*3/u L 0.00 - 0.20 12/28 Specimen Type: BLOOD Comment: No clots detected. Ordering Provider: Diaz CAMPOS Report Released Date/Time: Dec 28, 2023 01:43 PM Reporting Lab: [facility] [address] [place] [phone] Performing Lab: [address] [phone] [place] [address] CBC PLATELETS RETICULATED /100 PLATELETS IN BLOOD BY AUTOMATED COUNT 8.6 1.0 - 7.0 12/28 H Specimen Type: BLOOD Comment: No clots detected. Ordering Provider: Diaz CAMPOS Report Released Date/Time: Dec 28, 2023 01:43 PM Reporting Lab: [address] [phone] Performing Lab: [address] [phone] [place] [address] FREE T4 THYROXINE (T4) FREE [MASS/VOLUM E] IN SERUM OR PLASMA 0.79 ng/mL 0.7 - 1.48 12/28 Specimen Type: SERUM Comment: The listed sex of this patient may not be a typical indication for this test. Therefore, reference ranges or interpretiv e criteria listed may not be valid. Clinical correlation suggested. NO HEMOLYSIS NOTED. [facility] 12/28/23 Ordering Provider: Diaz CAMPOS Report Released Date/Time: Dec 28, 2023 01:43 PM Reporting Lab: [address] [phone] Performing Lab: [address] [phone] [facility] HEPATIC FUNTION PANEL (STL) PROTEIN [MASS/VOLUM E] IN SERUM OR PLASMA 7.2 g/dL 6 - 8.6 12/28 Specimen Type: PLASMA Comment: No hemolysis noted. Ordering Provider: Diaz CAMPOS Report Released Date/Time: Dec 28, 2023 01:43 PM Reporting Lab: [facility] [address] [place] [phone] Performing Lab: [address] [phone] [facility] HEPATIC FUNTION PANEL (STL) ALBUMIN [MASS/VOLUM E] IN SERUM OR PLASMA 4.3 g/dL 3.4 - 5 12/28 Specimen Type: PLASMA Comment: No hemolysis noted. Ordering Provider: Diaz CAMPOS Report Released Date/Time: Dec 28, 2023 01:43 PM Reporting Lab: [address] [phone] Performing Lab: [address] [phone] HEPATIC FUNTION PANEL (STL) BILIRUBIN.T OTAL [MASS/VOLUM E] IN SERUM OR PLASMA 1.4 mg/dL 0.2 - 1.2 12/28 H Specimen Type: PLASMA Comment: No hemolysis noted. Ordering Provider: Diaz CAMPOS Report Released Date/Time: Dec 28, 2023 01:43 PM Reporting Lab: [address] [address] Performing Lab: [address] [phone] [facility] HEPATIC FUNTION PANEL (STL) ALKALINE PHOSPHATASE [ENZYMATIC ACTIVITY/VO LUME] IN SERUM OR PLASMA 51 U/L 40 - 150 12/28 Specimen Type: PLASMA Comment: No hemolysis noted. Ordering Provider: Diaz CAMPOS Report Released Date/Time: Dec 28, 2023 01:43 PM Reporting Lab: [address] [address] Performing Lab: [address] [phone] [facility] HEPATIC FUNTION PANEL (STL) ASPARTATE AMINOTRANSF ERASE [ENZYMATIC ACTIVITY/VO LUME] IN SERUM OR PLASMA 28 U/L 5 - 34 12/28 Specimen Type: PLASMA Comment: No hemolysis noted. Ordering Provider: Diaz CAMPOS Report Released Date/Time: Dec 28, 2023 01:43 PM Reporting Lab: [address] [address] Performing Lab: [facility] [address] [facility] [address] [facility] HEPATIC FUNTION PANEL (STL) ALANINE AMINOTRANSF ERASE [ENZYMATIC ACTIVITY/VO LUME] IN SERUM OR PLASMA 40 U/L 8 - 40 12/28 Specimen Type: PLASMA Comment: No hemolysis noted. Ordering Provider: Diaz CAMPOS Report Released Date/Time: Dec 28, 2023 01:43 PM Reporting Lab: [facility] [address] [facility] [address] Performing Lab: [address] [phone] [place] [address] HEPATIC FUNTION PANEL (STL) BILIRUBIN.C ONJUGATED [MASS/VOLUM E] IN SERUM OR PLASMA 0.4 mg/dL 0 - 0.5 12/28 Specimen Type: PLASMA Comment: No hemolysis noted. Ordering Provider: Diaz CAMPOS Report Released Date/Time: Dec 28, 2023 01:43 PM Reporting Lab: [facility] [address] [place] [phone] Performing Lab: [address] [phone] [place] [address] HGA1C HEMOGLOBIN A1C/HEMOGLO BIN.TOTAL IN BLOOD 5.8 4.0 - 6.0 12/28 Specimen Type: BLOOD No comment entered. Ordering Provider: Diaz CAMPOS Report Released Date/Time: Dec 28, 2023 01:43 PM Reporting Lab: [facility] [address] [place] [phone] Performing Lab: [facility] [address] [place] [phone] [place] [address] LIPID PANEL (STL) CHOLESTEROL [MASS/VOLUM E] IN SERUM OR PLASMA 156 mg/dL 0 - 200 12/28 Specimen Type: PLASMA Comment: No hemolysis noted. Ordering Provider: Diaz CAMPOS Report Released Date/Time: Dec 28, 2023 01:43 PM Reporting Lab: [facility] [address] [facility] [address] Performing Lab: [address] [phone] [facility] LIPID PANEL (STL) TRIGLYCERID E [MASS/VOLUM E] IN SERUM OR PLASMA 68 mg/dL 0 - 150 12/28 Specimen Type: PLASMA Comment: No hemolysis noted. Ordering Provider: Diaz CAMPOS Report Released Date/Time: Dec 28, 2023 01:43 PM Reporting Lab: [address] [address] Performing Lab: [address] [phone] [facility] LIPID PANEL (STL) CHOLESTEROL IN LDL [MASS/VOLUM E] IN SERUM OR PLASMA BY CALCULATION 102 mg/dL 12/28 Specimen Type: PLASMA Comment: No hemolysis noted. Ordering Provider: Diaz CAMPOS Report Released Date/Time: Dec 28, 2023 01:43 PM Reporting Lab: [facility] [address] [place] [phone] Performing Lab: [address] [address] [facility] LIPID PANEL (STL) CHOLESTEROL IN HDL [MASS/VOLUM E] IN SERUM OR PLASMA 40 mg/dL 40 12/28 Specimen Type: PLASMA Comment: No hemolysis noted. Ordering Provider: Diaz CAMPOS Report Released Date/Time: Dec 28, 2023 01:43 PM Reporting Lab: [facility] [address] [place] [phone] Performing Lab: [address] [address] [facility] PROST. SPECIFIC AG.(PB-ST L) PROSTATE SPECIFIC AG [MASS/VOLUM E] IN SERUM OR PLASMA 0.274 ng/mL 0 - 4 12/28 Specimen Type: SERUM Comment: The listed sex of this patient may not be a typical indication for this test. Therefore, reference ranges or interpretiv e criteria listed may not be valid. Clinical correlation suggested. NO HEMOLYSIS NOTED. [facility] 12/28/23 Ordering Provider: Diaz CAMPOS Report Released Date/Time: Dec 28, 2023 01:43 PM Reporting Lab: [facility] [address] [facility] [address] Performing Lab: [place] [phone] [place] [address] TSH (MA-PB-ST L) THYROTROPIN [UNITS/VOLU ME] IN SERUM OR PLASMA 1.917 u[IU]/ mL 0.47 - 5 12/28 Specimen Type: SERUM Comment: The listed sex of this patient may not be a typical indication for this test. Therefore, reference ranges or interpretiv e criteria listed may not be valid. Clinical correlation suggested. NO HEMOLYSIS NOTED. [facility] 12/28/23 Ordering Provider: Diaz CAMPOS Report Released Date/Time: Dec 28, 2023 01:43 PM Reporting Lab: [facility] [address] [facility] [address] Performing Lab: [place] [phone] [place] [address] HBA1C HEMOGLOBIN A1C/HEMOGLO BIN.TOTAL IN BLOOD 6.0 <6.5 - 6.5 01/23 Specimen Type: BLOOD Comment: Values obtained from A1C measurement s can vary: For typical A1C assays, a reported value of 7.0 could actually be between 6.72 and 7.28 if measured by a reference method. A reported value of 9.0 could actually be between 8.73 and 9.27. Ref: http://www. ngsp.org/[place] Pdata.asp. Target A1c values should be individuali zed. An understandi ng of A1c test result accuracy is essential to interpret results for screening and treatment goals through the process of Shared Decision Making. A1c measurement s meet NGSP specificati ons for accuracy and precision. Contact [phone] if additional information on performance characteris tics is needed. Ordering Provider: CARMELA MEYER Report Released Date/Time: Sep 30, 2022 10:12 AM Reporting Lab: [address] [phone] Performing Lab: [address] [address] [facility] VITAMIN D 1,25 QUEST 1,25-DIHYDR OXYVITAMIN D [MASS/VOLUM E] IN SERUM OR PLASMA 32 pg/mL 18 - 72 01/23 Specimen Type: SERUM Comment: See Note 1 See Note 1 Vitamin D3, 1,25(OH)2 indicates both endogenous production and supplementa tion. Vitamin D2, 1,25(OH)2 is an indicator of exogenous sources, such as diet or supplementa tion. Interpretat ion and therapy are based on measurement of Vitamin D, 1,25 (OH)2, Total. See Note 1 See Note 2 Note 1 This test was developed and its analytical performance characteris tics have been determined by [employer] . It has not been cleared or approved by the FDA. This assay has been validated pursuant to the CLIA regulations and is used for clinical purposes. Note 2 For additional information , please refer to http://educ ation.[employer] .com/faq/FA Q199 (This link is being provided for information al/ educational purposes only.) TEST PERFORMED AT: [facility] [address] [address] Director: NYLA STOVALL MD Ordering Provider: CARMELA MEYER Report Released Date/Time: Sep 30, 2022 10:12 AM Reporting Lab: [address] [address] Performing Lab: [address] [facility] VITAMIN D 1,25 QUEST CALCITRIOL [MASS/VOLUM E] IN SERUM OR PLASMA 32 pg/mL 01/23 Specimen Type: SERUM Comment: See Note 1 See Note 1 Vitamin D3, 1,25(OH)2 indicates both endogenous production and supplementa tion. Vitamin D2, 1,25(OH)2 is an indicator of exogenous sources, such as diet or supplementa tion. Interpretat ion and therapy are based on measurement of Vitamin D, 1,25 (OH)2, Total. See Note 1 See Note 2 Note 1 This test was developed and its analytical performance characteris tics have been determined by [employer] . It has not been cleared or approved by the FDA. This assay has been validated pursuant to the CLIA regulations and is used for clinical purposes. Note 2 For additional information , please refer to http://[employer]/faq/FA Q199 (This link is being provided for information al/ educational purposes only.) TEST PERFORMED AT: [facility] [address] [address] Director: NYLA STOVALL MD Ordering Provider: CARMELA MEYER Report Released Date/Time: Sep 30, 2022 10:12 AM Reporting Lab: [address] [phone] Performing Lab: [address] VITAMIN D 1,25 QUEST 1,25-DIHYDR OXYVITAMIN D2 [MASS/VOLUM E] IN SERUM OR PLASMA <8pg/m L 01/23 Specimen Type: SERUM Comment: See Note 1 See Note 1 Vitamin D3, 1,25(OH)2 indicates both endogenous production and supplementa tion. Vitamin D2, 1,25(OH)2 is an indicator of exogenous sources, such as diet or supplementa tion. Interpretat ion and therapy are based on measurement of Vitamin D, 1,25 (OH)2, Total. See Note 1 See Note 2 Note 1 This test was developed and its analytical performance characteris tics have been determined by [facility] . It has not been cleared or approved by the FDA. This assay has been validated pursuant to the CLIA regulations and is used for clinical purposes. Note 2 For additional information , please refer to http://[employer] .Yadio/faq/FA Q199 (This link is being provided for information al/ educational purposes only.) TEST PERFORMED AT: [facility] [address] [address] Director: NYLA STOVALL MD Ordering Provider: CARMELA MEYER Report Released Date/Time: Sep 30, 2022 10:12 AM Reporting Lab: [address] [id number] Performing Lab: [address] [place] Vital Signs Combined list of inpatient and outpatient Vital Signs from [employer] and [employer], ranging from 12 months to all on record, depending upon the facility. Vital Sign Value Date Comments Source SYSTOLIC BLOOD PRESSURE 126 12/09/19 25 13:58:37 [facility] DIASTOLIC BLOOD PRESSURE 69 025 13:58:37 [facility] PULSE OXIMETRY 96 12/09/2024 13:58:37 [facility] WEIGHT 203.9 12/09/2024 13:58:37 [facility] BMI 28 kg/m2 12/09/2024 13:58:37 [facility] PAIN 3 12/09/2024 13:58:37 [facility] HEIGHT 72 12/09/2024 13:58:37 [facility] TEMPERATURE 97.7 12/09/2024 13:58:37 [facility] PULSE 71 12/09/2024 13:58:37 [facility] RESPIRATION 18 12/09/2024 13:58:37 [facility] SYSTOLIC BLOOD PRESSURE 133 06/26/20 24 15:04:06 [facility] DIASTOLIC BLOOD PRESSURE 81 024 15:04:06 [facility] PULSE OXIMETRY 95 06/26/2024 15:04:06 [facility] WEIGHT 207.9 06/26/2024 15:04:06 [facility] BMI 28 kg/m2 06/26/2024 15:04:06 [facility] PAIN 5 06/26/2024 15:04:06 [facility] TEMPERATURE 97.9 06/26/2024 15:04:06 [facility] PULSE 72 06/26/2024 15:04:06 [facility] RESPIRATION 16 06/26/2024 15:04:06 [facility] Encounters Combined list of: 1) Encounters from Department of Veterans Affairs facilities going backup to the last 18 months, not all VA inpatient encounters are included; 2) Encounters from the Department of Defense facilities going backup to 280 months. Location Location Details Encounter Type Encounter Number Reason For Visit Attending Provider ADM Date DC Date Status Disposition Source [address] [place] [address] OUTPATIENT [id number] REMINGTON MAURICIO Jonathan 03/21 Released w/o Limitations [address] [place] [address] OUTPATIENT [id number] [facility] Jonathan 03/21 Released w/o Limitations [address] [place] [address] OUTPATIENT [id number] [facility] Jonathan 04/27 Released w/o Limitations [address] [place] [address] OUTPATIENT [id number] GONZÁLEZ PERALTA 05/04 Released w/o Limitations [address] [place] [address]([facility]) OUTPATIENT [id number] LOWER BACK PAIN X 1 DAY CHAI FELIX 08/23 Released w/o Limitations [address] [place] [address]([facility]) [address] [place] [address]([facility]) OUTPATIENT [id number] DISCUSS ALLERGI ES AND SLEEP DISTURB CHAI SALEEM 12/12 Released w/o Limitations [address] [place] [address] [place](Mello [facility]gy) OUTPATIENT [id number] THIS IS A BOOKED APPT THAT NEVER TRANSFE RRED INTO AHLTA HAL COURTNEY 01/08 Released w/o Limitations [facility] [place](Al lergy) [facility] [place](Pulm [facility]ary Clinic) OUTPATIENT [id number] FRAN GANT 01/22 Released w/o Limitations [facility] [place]( lmonary Clinic) [facility] [place](Mello rgy) OUTPATIENT [id number] JAXON Reese 02/09 Released w/o Limitations [facility] [place](Al lergy) [address] [place] [address]([facility] amilPsychiatric) OUTPATIENT [id number] C/O VOMITIN G/NAUSE A X LAST NIGHT CONNOR MOE 02/12 Sick at Home/Quarter s [address] [place] [address] [place](Mello [facility]gy) OUTPATIENT [id number] f/u HAL COURTNEY 02/15 Released w/o Limitations [facility] [place](Al lergy) [address] [place] [address]([facility]) OUTPATIENT [id number] pha MIRANDA TIP 02/26 Released w/o Limitations [employer]([facility]) [employer]([facility]) OUTPATIENT [id number] neck pain CHAI FELIX 02/27 Released w/o Limitations [employer] [employer]([facility]) OUTPATIENT [id number] f/u back pain CHAI FELIX 03/16 Released w/o Limitations [employer] [employer]([facility]) OUTPATIENT [id number] SEPARAT ION PHYS, MEDICAL CLEARAN CE CHAI FELIX 03/26 Released w/o Limitations [employer] [employer]([facility]) OUTPATIENT [id number] F/U UPPER BACK PAIN CHAI FELIX 04/02 Released w/o Limitations [employer] [employer]([facility]) OUTPATIENT [id number] retire angie grijalva and review lab results CHAI FELIX 04/10 Released w/o Limitations [employer]([facility]) [employer](Phy sical Therapy ([facility])) OUTPATIENT [id number] CERVNATHALIE MURILLO 04/12 Released w/o Limitations [employer](P hysical Therapy ([facility])) [facility] Outpatient Encounter [id number] 08/03 [facility] Outpatient Encounter [id number] 08/09 [facility] PSYTX W PT 30 MINUTES [id number] Diagnos is: ICD-10- CM Y99.1 Yoanna Burns 08/10 [facility] Outpatient Encounter [id number] 08/11 [facility] Outpatient Encounter [id number] 08/14 [facility] HC PRO PHONE CALL 21-30 MIN [id number] Diagnos is: ICD-10- CM F41.9 Anxiety disorde r, unspeci LACIDES Raymond 08/18 [facility] Outpatient Encounter [id number] 08/30 [facility] Outpatient Encounter [id number] 09/13 [facility] Outpatient Encounter [id number] 10/03 [facility] Outpatient Encounter [id number] 10/18 [facility] HC PRO PHONE CALL 21-30 MIN [id number] Diagnos is: ICD-10- CM F41.9 Anxiety disorde r, unspeci ALCIDES Raymond 10/20 [facility] Outpatient Encounter [id number] 10/20 [facility] Outpatient Encounter [id number] 11/02 [facility] HC PRO PHONE CALL 21-30 MIN [id number] Diagnos is: ICD-10- CM F41.9 Anxiety disorde r, unspeci ALCIDES Raymond 11/20 [facility] Outpatient Encounter [id number] 11/20 [facility] TARGETED CASE MANAGEMENT [id number] [id number] FLORENCIA CORRAL 11/21 [facility] Outpatient Encounter [id number] [id number] 2 11/22 [facility] MTMS BY PHARM ADDL 15 MIN [id number] [id number] Diagnos is: ICD-10- CM F41.9 Anxiety disorde r, unspeci ALCIDES Raymond 12/15 [facility] TARGETED CASE MANAGEMENT [id number] [id number] FLORENCIA CORRAL 12/20 [facility] OFFICE O/P EST MOD 30 MIN [id number] [id number] Diagnos is: ICD-10- CM M54.12 Radicul opathy, cervica l region OZIEL CAMPOSYA 12/28 [facility] Outpatient Encounter [id number] 9 01/02 [facility] Outpatient Encounter [id number] [id number] 3 RICCO HILL 01/02 [facility] OFFICE O/P NEW MOD 45 MIN [id number] [id number] Diagnos is: ICD-10- CM K21.9 Gastro- esophag eal reflux disease without esophag itis MIKALA ALFONSO TTHEW H 01/05 [facility] Outpatient Encounter [id number] [id number] 01/08 [facility] TARGETED CASE MANAGEMENT [id number] [id number] 3 FLORENCIA CORRAL 01/14 [facility] Outpatient Encounter [id number] ALCIDES ERICKSON 01/17 [facility] Outpatient Encounter [id number]. [id number] 01/17 [facility] Outpatient Encounter [id number]. [id number] 01/17 [facility] PSYCH DIAG EVAL W/MED SRVCS [id number]. [id number] Diagnos is: ICD-10- CM F43.9 Reactio n to severe stress, unspeci Jonathan Saini R 01/24 [facility] MTMS BY PHARM ADDL 15 MIN [id number] Diagnos is: ICD-10- CM F41.9 Anxiety disorde r, unspeci fied ALCIDES ERICKSON 01/25 [facility] Outpatient Encounter [id number]. [id number] 02/01 [facility] Outpatient Encounter [id number]. [id number] 03/19 [facility] Outpatient Encounter [id number]. [id number] 03/22 [facility] Outpatient Encounter [id number] [id number] 7 03/22 [facility] Outpatient Encounter [id number]. [id number] 8 03/25 [facility] EGD DIAGNOSTIC BRUSH WASH [id number] 3 Diagnos is: ICD-10- CM K21.9 Gastro- esophag eal reflux disease without esophag itis KEATON FRANKLIN S 03/25 [facility] OFFICE O/P EST SF 10 MIN [id number] [id number] Diagnos is: ICD-10- CM Z01.818 Encount er for other preproc edural examMARY JANE Garcia 03/25 [facility] Outpatient Encounter [id number] [id number] KENNETH GARDNER 03/25 [facility] Outpatient Encounter [id number] [id number] RAYO JACKSON S 03/26 [facility] OFFICE O/P EST MOD 30 MIN [id number] [id number] Diagnos is: ICD-10- CM F43.12 Post-tr aumatic stress disorde r, Jonathan Herrera R 03/28 [facility] Outpatient Encounter [id number] 04/12 [facility] Outpatient Encounter [id number] [id number] 04/17 [facility] Outpatient Encounter [id number] [id number] 8 04/23 [facility] Outpatient Encounter [id number] [id number] 2 04/30 [facility] Outpatient Encounter [id number] [id number] 6 05/13 [facility] Outpatient Encounter [id number] [id number] 8 Diagnos is: ICD-10- CM M25.512 Pain in left shoulde r Harvey MORTON 05/13 [facility] Outpatient Encounter [id number] [id number] 1 LEAH-ARACELI HINES G 05/23 [facility] Outpatient Encounter [id number] [id number] 6 LEAH-ARACELI HINES G 06/03 [facility] OFFICE O/P EST MOD 30 MIN [id number] [id number] Diagnos is: ICD-10- CM F43.12 Post-tr aumatic stress disorde r, chronic TOCHTROP,M ATTHEW R 06/06 [facility] Outpatient Encounter [id number] 06/07 [facility] OT EVAL LOW COMPLEX 30 MIN [id number] [id number] Diagnos is: ICD-10- CM M25.512 Pain in left shoulde r LATONYA ELLIOTT 06/13 [facility] OFFICE O/P EST MOD 30 MIN [id number] [id number] Diagnos is: ICD-10- CM M54.12 Radicul opathy, cervica l region OZIEL CAMPOSYA 06/26 [facility] Outpatient Encounter [id number] [id number] 07/04 [facility] Outpatient Encounter [id number] [id number] 1 07/05 [facility] Outpatient Encounter [id number] [id number] 2 07/24 [facility] Outpatient Encounter [id number] [id number] 5 08/07 [facility] OFF/OP CNSLTJ NEW/EST MOD 40 [id number] [id number] Diagnos is: ICD-10- CM M54.2 Cervica lgia MAMADOU,ROS S 09/16 [facility] Outpatient Encounter [id number] [id number] 7 09/30 [facility] Outpatient Encounter [id number] [id number] 2 10/17 [facility] Outpatient Encounter [id number] [id number] 3 10/18 [facility] MANUAL THERAPY 1/> REGIONS [id number] Diagnos is: ICD-10- CM M54.2 Cervica lgia MAMADOU,ROS S 10/21 [facility] MANUAL THERAPY 1/> REGIONS [id number] [id number] Diagnos is: ICD-10- CM M54.2 Cervica lgia MAMADOU,ROS S 11/04 [facility] Outpatient Encounter [id number] 11/12 [facility] MANUAL THERAPY 1/> REGIONS [id number] [id number] Diagnos is: ICD-10- CM M54.2 Cervica lgia MAMADOU,ROS S 11/27 [facility] OFF/OP CNSLTJ NEW/EST LOW 30 [id number] [id number] Diagnos is: ICD-10- CM M54.2 Cervica lgia PALMA,NIKKI HN 12/09 [facility] MANUAL THERAPY 1/> REGIONS [id number] [id number] Diagnos is: ICD-10- CM M54.2 Cervica lgia MAMADOU,ROS S 12/11 [facility] OFFICE O/P EST MOD 30 MIN [id number] [id number] Diagnos is: ICD-10- CM F32.A Depress ion, unspeci fied FOLRITERSTEI N,TIBURCIO A 12/23 [facility] N [facility] Outpatient Encounter [id number] [id number] 12/23 [facility] N [facility] Outpatient Encounter [id number] [id number] 5 12/24 [facility] N [facility] Outpatient Encounter [id number] [id number] 2 12/[address] [facility] Procedures Combined list of: 1) Procedures from Department of Veterans Affairs facilities going back up to thelast 18 months, not all VA non-surgical procedures are included; 2) All procedures from the Department of Defense facilities. Procedure Procedure Type Code Date Perfomer Comments Sourc e UNLISTED PULMONARY SERVICE OR PROCEDURE 02/09/2007 [facility] SP[facility]OMETRY, INCLUDING GRAPHIC RECORD, TOTAL AND TIMED VITAL CAPACITY, EXPIRATORY FLOW RATE MEASUREMENT(S), WITH OR WITHOUT MAXIMAL VOLUNTARY VENTILATION 01/08/2007 [facility] PERCUTANEOUS TESTS (SCRATCH,PUNCTURE,AK ICK) SEQUENTIAL & INCREMENTAL,WITH DRUGS,BIOLOGICALS/VE NOMS,IMMEDIATE TYPE REACTION,INCLUDING TEST INTERPRETATION & REPORT,A PHYSICIAN,SPECIFY NUMBER OF TESTS 03/23/2000 [facility] PHYSICAL THERAPY RE-EVALUATION 10/04/1999 [facility] MUSCLE TESTING, MANUAL (SEPARATE PROCEDURE) WITH REPORT; EXTREMITY (EXCLUDING HAND) OR TRUNK 09/13/1999 [facility] PHYSICAL THERAPY EVALUATION 04/12/2007 [facility] THERAPEUTIC, PROPHYLACTIC OR DIAGNOSTIC INJECTION (SPECIFY SUBSTANCE OR DRUG); SUBCUTANEOUS OR INTRAMUSCULAR 02/12/2007 [facility] Physical Therapy Service Evaluation Physical Therapy Service Evaluation 41206 04/13/2007 NATHALIE ELKINS Motor - Performing Exam - Trunk Motor - Performing Exam - Trunk 86246 04/13/2007 NATHALIE ELKINS PT A e ment Kinetic Training PT Assessment Kinetic Training 64812 04/13/2007 NATHALIE ELKINS Pulmonary Function Tests Pulmonary Function Tests 97990 02/14/2007 JAXON PRATT [facility] Allergy Percutaneous tests - allergenic extracts 02/14/2007 JAXON PRATT [facility] Injection, promethazine HCl, up to 50 mg 02/12/2007 CONNOR MOE Physician Supervised Injection Intramuscular Physician Supervised Injection Intramuscular 04030 02/12/2007 CONNOR MOE Social History Combined list of available smoking, tobacco, and other social history from Department of Defense and Veterans Affairs facilities. Social History Type Response Date Comment Sour e Tobacco smoking status NHIS VA-TOBACCO NEVER USED 12/28/2023 [facility] History of tobacco use VA-TOBACCO NEVER USED 09/30/2022 [facility] History of tobacco use VA-TOBACCO NEVER USED 09/27/2021 [facility] History of tobacco use VA-TOBACCO NEVER USED 04/02/2020 [facility] History of tobacco use VA-TOBACCO NEVER USED 02/12/2019 [facility] History of tobacco use VA-TOBACCO NEVER USED 08/01/2018 [facility] History of tobacco use TOBACCO LIFETIME NON USER 10/25/2007 [facility] This section is an empty social history section. [facility] Plan of Care List of future care activities from Department of Veterans Affairs facilities. Additional future care activities may be listed in the Assessment and Plan section. Date/Time Care Activity Care Activity Detail Facili ty 05/26/2025 AMBULATORY - SURGERY AMBULATORY - SURGERY [facility] 06/23/2025 AMBULATORY - PSYCHIATRY AMBULATORY - PSYC HIATRY [facility]
--- OUTSIDE RECORDS SUMMARY | 2025-01-21 00:53 | XMS_ITS | Clinical Summary ---
Author Organization [facility] Address [address] [place] [address] Care Team Providers Care Geophysics Professor Name Role Phone Unknown, Provider Primary Care Provider Unavaila ble Source Comments [facility] writewith,non-owned Affiliates and Associated Physician Practices is amultiple site organization consisting of ambulatory clinics and hospital sitesin [place], [place], [place] and [place]. This disclosure is being madepursuant to the Care Everywhere program and may not contain all information available regarding this patient. Last updated 18.[facility] writewith Encounters Date Type Department Care Team Description 11/29/2024 3:00 PM GRIEVANCE MANAGER Procedure visit [facility] [address] [place] [id number] None, Physician Fatty liver 11/14/2024 Travel from Last 3 Months Social History Tobacco Use Types Packs/Day Years Used Date Smoking Tobacco: Never Assessed Sex and Gender Information Value Date Recorded Sex Assigned at Not on file Gender Identity Not on file Sexual Orientation Not on file Plan of Treatment Health Maintenance Due Date Last Done Comments COLOGUARD (AGES 45-75) - COLON CA SCREENING 1961 COLON MONITORING 1961 COLONOSCOPY - COLON CA SCREENING 1961 CT COLONOGRAPHY - COLON CA SCREENING 1961 Colorectal Cancer Screening 1961 FIT - COLON CA SCREENING 1961 FLEX SIG - COLON CA SCREENING 1961 LIPID TESTING 1961 HIV SCREENING 1976 HEPATITIS C SCREENING 09/28/1979 DTAP/TDAP/TD VACCINES (1 - Tdap) 1980 PNEUMOCOCCAL VACCINE 50+ (1 of 1 - PCV) 2011 ZOSTER VACCINE (1 of 2) 2011 COVID-19 VACCINE (2023- season) 2024 08/27/2022, 08/26/2022, 03/20/2022, Additional history exists INFLUENZA VACCINE (#1) 2024 3, 08/26/2022, 08/13/2022, Additional history exists DEPRESSION SCREENING 11/13/2024 Respiratory Syncytial Virus (RSV) Vaccine Pt: or over 60 yrs (1 - 1-dose 75+ series) 2036 HEPATITIS B VACCINE Aged Out No longe r eligible based on patient's age to complete this topic HIB VACCINE Aged Out No longer eligi ble based on patient's age to complete this topic HPV VACCINE Aged Out No longer eligi ble based on patient's age to complete this topic MENINGOCOCCAL (Group B) VACCINE Aged Out No longer eligible based on patient's age to complete this topic MENINGOCOCCAL VACCINE Aged Out No татьяна yudith eligible based on patient's age to complete this topic Procedures Procedure Name Priority Date/Time Associated Diagnosis Comments [place] LIVER ELASTOGRAPHY Routine 11/29/2024 4:15 PM GRIEVANCE MANAGER Fatty liver from Last 3 Months Results * PROC FIBROSCAN (11/29/2024 4:15 PM GRIEVANCE MANAGER) Narrative Gallito Mcgregor MD - 11/29/2024 4:15 PM GRIEVANCE MANAGER Gallito Mcgregor MD 12/01/2024 9:39 PM Diagnosis: Fatty Liver RN verified patient is NPO for prior 3 hours. Procedure explained. Date of Exam: 11/29/2024 Liver Stiffness: (LSM, kPa) median: 6.6 IQR/Median% (ideally < 30%): 16% CAP (controlled attenuation parameter): 358 Technical Difficulty: None Ordering Provider: Dr. Harrington Fibroscan interpretation: I have personally reviewed the Fibroscan report and associated tracings. The calculated Liver Stiffness Measurement (LSM, kPa) indicates that: The probability of advanced liver fibrosis is: low. The loss of ultrasound signal, (controlled attenuation parameter, CAP [dB/m]), indicates that the probability of hepatic steatosis is: high. Gallito Verdin MD The following criteria are used to indicate the probability of advanced (stage 3-4) fibrosis: < 7.0 kPa: low 7.0-8.9 kPa: low to moderate 9.0-14.9 kPa: moderate 15-20 kPa: high > 20 kPa: very high Liver stiffness > 12 kPa is associated with an increased risk of cirrhosis-related complications over the next 3-5 years (Barak, 2022). Liver stiffness > 20 kPa is also associated with a high probability of complications of portal hypertension including varices and ascites. Liver stiffness > 50 kPa is associated with a high risk of variceal bleeding. These interpretations are based on the following published data: Barak J, Hagstr m H, Ekstedt M, Scott C, Bonacci M, Cure S, Ampuero J, Nasr P, Tallab L, Canivet CM, Kedestiney S, S keith Y, Richar E, Mavis A, Marlin M, Belén J, Enrike A and Escobedo-Barros M. Non-invasive tests accurately stratify patients with NAFLD based on their risk of liver-related events. J Hepatol (2021) 76: 7243-1968. Danilo PJ, Davin M, Shantel M, et al. Accuracy of FibroScan controlled attenuation parameter and liver stiffness measurement in assessing steatosis and fibrosis in patients with nonalcoholic fatty liver disease. Gastroenterology 2019;156:7335-5233. Saul RHODES, Shelley R, Van Mary MURILLO, et al. Vibration-controlled transient elastography to assess fibrosis and steatosis in patients with nonalcoholic fatty liver disease. Clin Gastroenterol Hepatol 2019;17:156-163. Note that scores have been developed that incorporate the Fibroscan liver stiffness measurement from large cohorts of patients with liver biopsies to further refine the ability of Fibroscan to identify patients with MASH and advanced fibrosis. These include the FAST (Fibroscan-AST) score (Sylvia, 2022) and the Agile3+ and Agile4 scores (Geovanna, 2023; Shi, 2024). Sylvia MARTIN, Van Natbam ML, Emma Castillo, Tanner York, et al. Validation of the accuracy of the FAST score for detecting patients with at-risk nonalcoholic steatohepatitis (ROGERS) in a [place] cohort and comparison to other non-invasive algorithms. PLoS ONE (2021) 17: [id number]. Geovanna BRIONES, Yariel J, Fina ZM, et al. Enhanced diagnosis of advanced fibrosis and cirrhosis in individuals with NAFLD using FibroScan-based Agile scores. J Hepatol (2022) 78: 247-259. Shi et al. Vibration-controlled transient elastography scores to predict liver-related events in steatotic liver disease. AYAH (2023) 331: 8337-3905 Fibroscan LSM can also be used with laboratory parameters without formulas to assess prognosis. According to the Baveno-VII criteria (Bailey, 202), Fibroscan LSM <=15 kPa plus a platelet count of >=243x333/L rules out clinically significant portal hypertension (sensitivity and negative predictive value >90%) in patients with compensated advanced chronic liver disease. Bailey R, Piper J, Mariana G, Elizabeth T, Chandler Gabriel on behalf of the Baveno VII Faculty. Baveno VII--Renewing consensus in portal hypertension. J Hepatol (2021) 76: 959-974 Assessing the likelihood of advanced fibrosis in patients with intermediate liver stiffness measurement (LSM) by Fibroscan (e.g., 8-15 kPa) can be improved by also calculating the FIB-4 score (Cristinee et al. Hepatology Communications 2019;3:1059-4722) or NAFLD Fibrosis score (Juarez et al. Clinical Gastroenterology and Hepatology 2019;17:0029-6676 using routine clinical data. Notes: 1. Fibroscan cannot reliably identify earlier stages of fibrosis (ie distinguish F0 from F1 and F2) and thus a histologic stage cannot be predicted from the Fibroscan reading. 2. Liver stiffness can be increased by factors other than fibrosis including passive congestion, infiltrative processes, active alcoholism, recent moderate alcohol consumption in the 2 weeks before the exam, biliary obstruction and marked inflammation. The interpretation of the Fibroscan result provided above may not have taken such clinical factors into account. 3. Identifying steatosis by an elevated CAP score (> 250 db/m) is useful for establishing a diagnosis of steatotic liver disease. However the severity of steatosis does not correlate with liver related outcomes. Disease etiology also influences Fibroscan cutoff values for fibrosis stages and the following cutoffs have been proposed (Jyotsna et al, Clin Gastro Hepatol 2015; 13:27-36): Cutoffs for Stage 3 and Stage 4 fibrosis respectively: Hepatitis B: >9 and >11.7 kPa Hepatitis C: >9.5 and >12.5 kPa HCV-HIV: >11 and >14 kPa Cholestatic liver diseases: >10 and >17.9 kPa MASLD/MASH: >10 and >14 kPa CAP estimates of steatosis: normal <200 dB/m mild 200 to 250 dB/m moderate 250-290 dB/m substantial > 290 dB/m (Note that Fibroscan is not a quantitative measure of liver fat.) These criteria are estimates and may change as additional supporting data becomes available. (This additional interpretive data was last updated 11/15/24.) [email or web address] Physician None PROCEDURE/MINOR SURG ICAL ORDERABLES from Last 3 Months Care Teams Geophysics Professor Relationship Specialty Start Date End Date Unknown, Provider PCP - General 11/29/24
--- OUTSIDE RECORDS SUMMARY | 2025-01-21 00:53 | XMS_ITS | Referral Summary ---
Author Organization [facility] Address [address] [place] [address] Care Team Providers Care Corporate Bond Trader Name Role Phone Unknown, Provider Primary Care Provider Unavaila ble Source Comments [facility],non-owned Affiliates and Associated Physician Practices is amultiple site organization consisting of ambulatory clinics and hospital sitesin [place], [place], [place] and [place]. This disclosure is being madepursuant to the Care Everywhere program and may not contain all information available regarding this patient. Last updated 18.[facility] Encounters Date Type Department Care Team Description 11/29/2024 3:00 PM ENVIRONMENTAL ENGINEERING INTERN Procedure visit [facility] Physician [address] [phone] None, Physician Fatty liver 11/14/2024 Travel from Last 3 Months Social History Tobacco Use Types Packs/Day Years Used Date Smoking Tobacco: Never Assessed Sex and Gender Information Value Date Recorded Sex Assigned at Not on file Gender Identity Not on file Sexual Orientation Not on file Plan of Treatment Not on file Procedures Procedure Name Priority Date/Time Associated Diagnosis Comments RI LIVER ELASTOGRAPHY Routine 11/29/2024 4:15 PM ENVIRONMENTAL ENGINEERING INTERN Fatty liver from Last 3 Months Results * PROC FIBROSCAN (11/29/2024 4:15 PM ENVIRONMENTAL ENGINEERING INTERN) Narrative Gallito Mcgregor MD - 11/29/2024 4:15 PM ENVIRONMENTAL ENGINEERING INTERN Gallito Mcgregor MD 12/01/2024 9:39 PM Diagnosis: [...] cirrhosis-related complications over the next 3-5 years (Jarrettier, 2022). Liver stiffness > 20 kPa is also associated with a high probability of complications of portal hypertension including varices and ascites. Liver stiffness > 50 kPa is associated with a high risk of variceal bleeding. These interpretations are based on the following published data: Barak J, Hagstr m H, Ekstmagot M, Scott C, Bonacci M, Cure S, Ampuero J, Nasr P, Tallab L, Canivet CM, Kechakeo S, S nchez Y, Dincumichelle E, Mavis A, Marlin M, Belén J, Trymercedes A and Escobedo-Barros M. Non-invasive tests accurately stratify patients with NAFLD based on their risk of liver-related events. J Hepatol (2021) 76: 3687-0014. Danilo PJ, Davin M, Shantel M, et al. Accuracy of FibroScan controlled attenuation parameter and liver stiffness measurement in assessing steatosis and fibrosis in patients with nonalcoholic fatty liver disease. Gastroenterology 2019;156:4575-0733. Saul MS, Shelley R, Van Mary ML, et al. Vibration-controlled transient elastography to assess [...] These include the FAST (Fibroscan-AST) score (Sylvia, 2021) and the Agile3+ and Agile4 scores (Geovanna, 2022; Shi, 2023). Sylvia TA, Wilton Hernandez ML, Emma M, Tanner A, et al. Validation of the accuracy of the FAST score for detecting patients with at-risk nonalcoholic steatohepatitis (ROGERS) in a [place] cohort and comparison to other non-invasive algorithms. PLoS ONE (2021) 17: e9599744. Geovanna AJ, Yariel J, Fina ZM, et al. Enhanced diagnosis of advanced fibrosis and cirrhosis in individuals with NAFLD using FibroScan-based Agile scores. J Hepatol (2022) 78: 247-259. Shi et al. Vibration-controlled transient elastography scores to predict liver-related events in steatotic liver disease. AYAH (2023) 331: 8577-8888 Fibroscan LSM can also be used with laboratory parameters without formulas to assess prognosis. According to the Baveno-VII criteria (Bailey, 202), Fibroscan LSM <=15 kPa plus a platelet count of >=299x332/L rules out clinically significant portal hypertension (sensitivity and negative predictive value >90%) in patients with compensated advanced chronic liver disease. Bailey R, Piper J, Pierre-Flora G, Elizabeth T, Chandler Gabriel on behalf of the Baveno VII Faculty. Baveno VII--Renewing consensus in portal hypertension. J Hepatol (2021) 76: 959-974 Assessing the likelihood of advanced fibrosis in patients with intermediate liver stiffness measurement (LSM) by Fibroscan (e.g., 8-15 kPa) can be improved by also calculating the FIB-4 score (Kelly et al. Hepatology Communications 2019;3:8590-9919) or NAFLD Fibrosis score (Juarez et al. Clinical Gastroenterology and Hepatology 2019;17:7168-5431 using routine clinical data. Notes: 1. Fibroscan [...] additional interpretive data was last updated 11/15/24.) [email or web address] Physician None PROCEDURE/MINOR SURG ICAL ORDERABLES from Last 3 Months Care Teams Corporate Bond Trader Relationship Specialty Start Date End Date Unknown, Provider PCP - General 11/29/24
--- OUTSIDE RECORDS SUMMARY | 2025-01-21 00:53 | XMS_ITS | Patient Health Summary ---
Author Organization [facility] Address [address] [place] [address] Care Team Providers Care Boiler Tube Blower Name Role Phone Unknown, Provider Primary Care Provider Unavaila ble Note from [facility],non-owned Affiliates and Associated Physician Practices is amultiple site organization consisting of ambulatory clinics and hospital sitesin [place], [place], [place] and [place]. This disclosure is being madepursuant to the Care Everywhere program and may not contain all information available regarding this patient. Last updated 18.[facility] Social History Tobacco Use Types Packs/Day Years Used Date Smoking Tobacco: Never Assessed Sex and Gender Information Value Date Recorded Sex Assigned at Not on file Gender Identity Not on file Sexual Orientation Not on file Procedures * [place] LIVER ELASTOGRAPHY(Performed 11/29/2024) Performed for Fatty liver Results * PROC FIBROSCAN (11/29/2024 4:15 PM GAS TRANSFER OPERATOR) Narrative Gallito Mcgregor MD - 11/29/2024 4:15 PM GAS TRANSFER OPERATOR Gallito Mcgregor MD 12/01/2024 9:39 PM Diagnosis: [...] on the following published data: Barak J, Guillermor m H, James M, Scott C, [place] M, Cure S, [place]yaho J, Art P, Keegan L, Canorlando CM, Kechakeo S, S nchez Y, Richar E, Mavis A, Marlin M, Belén J, Enrike A and Stewart M. Non-invasive tests accurately stratify patients with NAFLD based on their risk of liver-related events. J Hepatol (2021) 76: 5675-9825. Danilo PJ, Davin M, Shantel M, et al. Accuracy of FibroScan controlled attenuation parameter and liver stiffness measurement in assessing steatosis and fibrosis in patients with nonalcoholic fatty liver disease. Gastroenterology 2019;156:3414-1869. Saul RHODES, Shelley R, Van Natbam ML, et al. Vibration-controlled transient elastography to [...] (Geovanna, 2023; Shi, 2024). Sylvia MARTIN, Van Natta ML, Emma Castillo, Tanner York, et al. Validation of the accuracy of the FAST score for detecting patients with at-risk nonalcoholic steatohepatitis (ROGERS) in a [place] cohort and comparison to other non-invasive algorithms. PLoS ONE (2021) 17: [id number]. Geovanna AJ, Yariel J, Fina ZM, et al. Enhanced diagnosis of advanced fibrosis and cirrhosis in individuals with NAFLD using FibroScan-based Agile scores. J Hepatol (2022) 78: 247-259. Shi et al. Vibration-controlled transient elastography scores to predict liver-related events in steatotic liver disease. AYAH (2023) 331: 5793-5492 Fibroscan LSM can also be used with laboratory parameters without formulas to assess prognosis. According to the Baveno-VII criteria (Bailey, 202), Fibroscan LSM <=15 kPa plus a platelet count of >=217u673/L rules out clinically significant portal hypertension (sensitivity and negative predictive value >90%) in patients with compensated advanced chronic liver disease. Bailey R, Piper J, Pierre-Flora G, Elizabeth T, Chandler C on behalf of the Baveno VII Faculty. Baveno VII--Renewing consensus in portal hypertension. J Hepatol (2021) 76: 959-974 Assessing the likelihood of advanced fibrosis in patients with intermediate liver stiffness measurement (LSM) by Fibroscan (e.g., 8-15 kPa) can be improved by also calculating the FIB-4 score (Kelly et al. Hepatology Communications 2019;3:6785-3660) or NAFLD Fibrosis score (Juarez et al. Clinical Gastroenterology and Hepatology 2019;17:1117-6289 using routine clinical data. Notes: 1. Fibroscan [...] additional interpretive data was last updated 11/15/24.) [email or web address] Physician None PROCEDURE/MINOR SURG ICAL ORDERABLES Care Teams Boiler Tube Blower Relationship Specialty Start Date End Date Unknown, Provider PCP - General 11/29/24
[2025-01-21] MEDS: ACETAMINOPHEN 500 MG TABLET 1000 MG PO (10:25)
[2025-01-21] MEDS: KETOROLAC 15 MG/ML VIAL (*BKC) IV PUSH (10:26)
[2025-01-21] MEDS: LACTATED RINGERS 1,000 ML 30 ML IV CONT ×2 (12:00→15:24)
--- NOTE | 2025-01-21 12:04 | P.HP_ITS ---
H&P: HPI History of Present Illness Date/Time: 01/21/25 12:04 Chief Complaint: GERD, Hiatal hernia Narrative: This is a 64 yo man who presents for hiatal hernia repair with fundoplication. He denies any changes since last seen in office. Review of Systems Review of Systems: All systems reviewed & are unremarkable except as noted in HPI and below Constitutional: Constitutional: Denies chills, Denies fever(s), Denies headache(s) and Denies weight loss Eyes: Eyes: Denies change in vision ENT: Denies dizziness, Denies headache(s), Denies neck mass and Denies throat swelling Cardiovascular: Cardiovascular: Denies chest pain, Denies lightheadedness and Denies dyspnea Respiratory: Respiratory: Denies cough, Denies dyspnea and Denies wheezing Gastrointestinal: Gastrointestinal: Denies abdominal pain, Denies change in bowel habits, Denies nausea and Denies vomiting Genitourinary: Genitourinary: Denies hematuria and Denies dysuria Musculoskeletal: Musculoskeletal: Reports as per HPI Integumentary/Breasts: Skin/Breast: Reports as per HPI Neurologic: Denies dizziness and Denies headache(s) Allergic/Immunologic: Allergic/Immunologic: Denies throat swelling and Denies wheezing PMFSH Past Medical History Medical History Melanoma Headache GERD (gastroesophageal reflux disease) Anxiety Allergies Surgical History Surgical History H/O cervical discectomy Family History Family History Father Cerebrovascular accident Mother Family history of congestive heart failure Other Family history of lung cancer Social History Social History Smoking status: Never smoker Second hand tobacco smoke exposure: No Alcohol intake: never Substance use: never Substance use type: does not use Current Housing: Decline to Answer Concerned About Future Housing: Decline to Answer Difficulty Paying Gas/Electric Bills: Decline to Answer Difficulty Paying for Meds: Decline to Answer Currently Unemployed: Decline to Answer Education: Decline to Answer Difficulty w/ Childcare or Family Care: Decline to Answer Living arrangements: with family Occupation/Education: occupation 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 Gender identity (if verbalized by the patient): Male Spiritual care concerns: No Meds Home Medications and Allergies Home Medications ?Medication ?Instructions ?Recorded ?Confirmed ?Type buspirone 10 mg tablet 10 mg PO DAILY 06/25/24 01/21/25 History cetirizine 10 mg tablet 10 mg PO DAILY 06/25/24 01/21/25 History duloxetine 60 mg capsule,delayed 60 mg PO DAILY 06/25/24 01/21/25 History release fluticasone propionate 50 1 spray intranasal DAILY 06/25/24 01/20/25 History mcg/actuation nasal spray,suspension tadalafil 5 mg tablet 5 mg PO DAILY #30 tabs 10/28/24 01/20/25 Rx Allergies Allergy/AdvReac Type Severity Reaction Status Date / Time No Known Allergies Allergy Verified 01/21/25 10:04 Vital Signs Vital Signs - 24 hr 01/21/25 09:43 Temperature 97.0 F L Pulse Rate 62 Respiratory Rate 20 Blood Pressure 121/77 Pulse Oximetry 100 Oxygen Delivery Room Air Exam Const: General: no acute distress and alert Orientation/consciousness: patient oriented x3 HENMT: Head: normocephalic and atraumatic Ears: hearing grossly normal bilaterally Face/Nose/Sinus: Normal nares present Mouth: Yes Normal oral and palatal mucosa present Eyes: Periorbital: periorbital findings normal Sclera: sclerae normal EOM: EOMs intact bilaterally Neck: Neck: normal visual inspection, no lymphadenopathy and trachea midline Chest: Chest palpation & inspection: normal inspection of the chest Resp: Effort & Inspection: normal respiratory effort Auscultation: clear to auscultation bilaterally Cardio: Jugular venous distension: no JVD Rate: regular rate Rhythm: regular rhythm Heart sounds: S1 normal heart sound present and S2 normal heart sound present Peripheral pulses: Peripheral pulses 2+ throughout GI: Inspection: normal to inspection GI Palp: Yes Soft to palpation, No Tenderness to palpation present (GI), No Guarding due to palpation present (GI) and No Rebound tenderness present Percussion: Yes normal to percussion Auscultation: normal bowel sounds : General: Yes no CVA tenderness Back/Spine/Pelvis: Back: no CVA tenderness Neuro: General: patient oriented x3, no focal motor deficits and CN's II-XI intact bilaterally Cognition (Neuro): normal cognition Speech: normal speech Motor exam (neuro): 5/5 motor strength present throughout Extrem: General: capillary refill normal and no clubbing, cyanosis or edema Assessment and Plan Assessment and plan (1) GERD (gastroesophageal reflux disease): Qualifiers: Esophagitis presence: esophagitis presence not specified Qualified Code(s): K21.9 - Gastro-esophageal reflux disease without esophagitis Code(s): K21.9 - Gastro-esophageal reflux disease without esophagitis Status: Acute Assessment and Plan: I have recommended laparoscopic paraesophageal hiatal hernia repair with fundoplication, da Ev assisted. I have discussed the procedure, risks, benefits, and alternatives with the patient. All questions answered. No changes since last seen in office. (2) Hiatal hernia: Code(s): K44.9 - Diaphragmatic hernia without obstruction or gangrene Status: Acute
--- NOTE | 2025-01-21 12:04 | WPDHPUPDATE1 ---
History and Physical Update Update Date/Time: 01/21/25 12:04 History and Physical has been reviewed, including an updated exam of the patient. There are NO changes in the patient's condition. Risks, benefits, and alternatives have been discussed and questions answered. Patient agrees to proceed with procedure.
--- NOTE | 2025-01-21 12:35 | P.PNAN_ITS ---
Anes - Initial Pre Proc Eval Procedure: Operation Date: 01/21/25 11:30 Proposed Procedures p Laparoscopic Paraesophageal Hiatal Hernia Repair with Fundoplication, Davinci Assisted - Nick Worley DO Date/Time: 01/21/25 12:35 Surgeon: Nick Worley DO Pre Op Diagnosis: hiatal hernia Patient Data Age: 64 Gender: M Height: 1.83 m Weight: 91 kg Last Vital Signs Temp 36.1 C L 01/21/25 09:43 Pulse 62 01/21/25 09:43 Resp 20 01/21/25 09:43 BP 121/77 01/21/25 09:43 Pulse Ox 100 01/21/25 09:43 O2 Del Method Room Air 01/21/25 09:43 Allergies Allergy/AdvReac Type Severity Reaction Status Date / Time No Known Allergies Allergy Verified 01/21/25 10:04 Home Medications ?Medication ?Instructions ?Recorded ?Confirmed ?Type buspirone 10 mg tablet 10 mg PO DAILY 06/25/24 01/21/25 History cetirizine 10 mg tablet 10 mg PO DAILY 06/25/24 01/21/25 History duloxetine 60 mg capsule,delayed 60 mg PO DAILY 06/25/24 01/21/25 History release fluticasone propionate 50 1 spray intranasal DAILY 06/25/24 01/20/25 History mcg/actuation nasal spray,suspension tadalafil 5 mg tablet 5 mg PO DAILY #30 tabs 10/28/24 01/20/25 Rx Patient hx anesthesia problems: none Family hx anesthesia problems: none Results Review: All pre-operative results and documents have been reviewed as part of the pre- operative evaluation. [facility] Past Medical History Medical History Melanoma Headache GERD (gastroesophageal reflux disease) Anxiety Allergies Surgical History Surgical History H/O cervical discectomy Family History Family History Father Cerebrovascular accident Mother Family history of congestive heart failure Other Family history of lung cancer Social History Social History Smoking status: Never smoker Second hand tobacco smoke exposure: No Alcohol intake: never Substance use: never Substance use type: does not use Current Housing: Decline to Answer Concerned About Future Housing: Decline to Answer Difficulty Paying Gas/Electric Bills: Decline to Answer Difficulty Paying for Meds: Decline to Answer Currently Unemployed: Decline to Answer Education: Decline to Answer Difficulty w/ Childcare or Family Care: Decline to Answer Living arrangements: with family Occupation/Education: occupation 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 Informed Consent: The patient's anesthetic plan and its attendant risks and benefits were discussed with the patient/family/POA. Questions were solicited and answers provided to the satisfaction of the patient/family/POA.
[2025-01-21] MEDS: ceFAZolin 2 GM/D5W 50 ML 2 GM/50 ML BAG IVPB (12:45)
[2025-01-21] MEDS: BUPIVACAINE/EPINEPHRINE 0.5% 50 ML VIAL 30 ML INFILTRATE (13:32)
--- NOTE | 2025-01-21 15:24 | W.PM.PROC2 ---
Procedure Note - Detailed Date of Procedure 01/21/25 Pre-op Diagnosis hiatal hernia, GERD Post-op Diagnosis Same (Type III paraesophageal hiatal hernia, GERD) Procedure Performed Robotic assisted laparoscopic paraesophageal hernia repair with 270 degree fundoplication Surgeon Nick Worley, DO Anesthesia General and Local (0.5% bupivicaine with epi) Indications This is a 64-year-old man who presented with frequent GERD and bloating symptoms. He has tried proton pump inhibitors in the past without relief. He has a prior history of a EGD which showed evidence of a moderate-sized hiatal hernia. An upper GI was performed which showed no evidence of esophageal dysmotility. Discussions were made with the patient about treatment options and decision was made to proceed with robotic assisted laparoscopic paraesophageal hiatal hernia repair with fundoplication. Findings The patient was found to have a type 3 paraesophageal hiatal hernia with his GE junction about 4 cm above the hiatus and a portion of his gastric cardia protruding up into the hiatal hernia. Esophageal mobilization was performed along with reduction of the hernia sac. The hiatal hernia was then repaired using 2-0 V lock permanent running suture and the decision was made to perform a 270 degree fundoplication. Description of Procedure Procedure as well as risks, benefits, and alternatives were discussed with the patient. Written consent was obtained and placed in chart prior to procedure. Patient was brought back to surgical suite. He was placed supine on operating table. Time-out was done to confirm patient and procedure. He was then intubated by the anesthesia department. His abdomen was prepped and draped in sterile fashion using chlorhexidine prep. 0.5% bupivacaine with epinephrine was infiltrated locally around each area for port placement. An 8 mm incision was made in the left upper quadrant 2 cm inferior to the costal margin in the mid clavicular line. A 5 mm Optiview trocar was then advanced through the abdominal layers under direct visualization. Once inside the abdominal cavity, carbon dioxide insufflation was used to create a pneumoperitoneum. The camera was inserted in the abdomen was inspected. No immediate abnormalities were identified. Another 8 mm camera port was placed about 15 cm inferior to the xiphoid just to the left of midline under direct visualization. An 8 mm port was placed in the anterior axillary line on the left upper quadrant at about the same transverse plane as the camera port. An 5 mm port was placed in the right upper quadrant and 5 mm assist port was placed in right lower quadrant just to the right of the umbilicus. A 5 mm incision was made in the subxiphoid region and the [place] liver retractor was inserted through this incision into the abdominal cavity to lift up the left lobe of the liver. This was secured in place to the bed of the table. The patient was then placed in 20? reverse Trendelenburg. The robotic arms were secured to the ports and the robotic camera and instruments were inserted. A force bipolar grasper was placed in the right upper quadrant port. The vessel sealer was placed in the midclavicular left upper quadrant port and a Cadiere grasper was placed in the anterior axillary line left upper quadrant port. I then moved over to the robotic console took control of the camera and instruments. A careful thorough exam was performed throughout the abdomen. The stomach was then reduced from within the hiatal hernia. The gastrohepatic ligament was taken down medially using the vessel sealer to identify the right leatha. Peritoneum along the medial side of the right leatha was then divided using the vessel sealer. This allowed me to enter into the avascular plane and carefully dissect the hernia sac from within the hiatus. I continued the peritoneal incision along the right leatha up to the anterior portion of the diaphragm. I then also dissected this far enough posteriorly to identify the crossing fibers of the left leatha. I identified the anterior vagus nerve branch and carefully dissected this along with the esophagus. The hernia sac was dissected off of the esophagus and the dissection was carried along to the left leatha using the vessel sealer. The peritoneum was dissected off of the left leatha all the way down to posterior to the esophagus. I was then able to reduce the hernia sac completely and then created a window posteriorly behind the distal esophagus. A Hitchcock drain was then placed around the esophagus to help with retraction. I then continued the dissection up into the hiatus to allow for enough esophageal length. Once adequate dissection was performed, I was able to identify about 3-4 cm of esophageal length within the abdominal cavity at rest. I then inspected the posterior crura and chose to close the crura with a 2 0 V lock permanent running suture. This was run from posterior to anterior to allow for a wide enough opening for the esophagus. The repair was inspected and appeared secure. I then took down the short gastrics along the fundus the stomach using the vessel sealer. I entered into the lesser sac continued this dissection along the greater curvature and fundus. Then passed the fundus posterior to the esophagus and using a shoe shine technique was able to bring the fundus up around the sides of the esophagus. I chose to perform a 270 degree fundoplication. 2 0 Ethibond sutures were placed along the lateral esophagus along the right side initially. Three sutures were placed between the esophageal muscle fibers and fundus of the stomach to allow a fundoplication length of about 2 cm long. I then performed the same 3 sutures along the left side of the esophagus to the left side of the fundus. The fundoplication was then also pexy to the diaphragm along the posterior crura and left and right side of the esophageal hiatus. The partial fundoplication was inspected and appeared secure. No other abnormalities were noted with the esophagus or stomach. Hitchcock drain was removed. The robotic instruments and arms were then removed. The patient was then flattened out and bed and the [place] liver retractor was then removed. The remaining ports were then removed under direct visualization, and the pneumoperitoneum was released. Skin of the incisions was approximated using 4-0 Monocryl subcuticular sutures. Exofin glue was then applied top. The patient was then awakened from anesthesia, extubated, and transferred to recovery. Estimated Blood Loss 10 Complications No immediate complications Condition Stable Disposition [place] [facility] [place] - Charge Forward: Surgery Billing
--- NOTE | 2025-01-21 17:15 | PC.NURSE ---
This patient, Lior Banks, was admitted to [facility] Surg Room 305-01. Patient/family oriented to hospital policies and general routines including ID bracelet, bed and alarms, visiting hours, pain management, procedures, bathroom and other care routines, personal items, smoking policy, room service/diet, and visiting hours. Information on how to activate the Rapid Response Team has been discussed. Patient/Family are encouraged to report perceived risks to care and to ask questions if they do not understand what they are told or what they should do.
[2025-01-21] MEDS: LACTATED RINGERS 1,000 ML 100 ML IV CONT (17:42)
[2025-01-22 04:05] VITALS: BP 115/53; PULSE 72; RESP 18; TEMP 36.2; O2SAT 95
[2025-01-22 05:42] LABS: Hematocrit 42.8 % (42.0-52.0); Hemoglobin 14.3 g/dL (14.0-18.0); Mean Corpuscular HGB Conc 33.4 g/dl (32-36); Mean Corpuscular Hemoglobin 32.3 pg (26-34); Mean Corpuscular Volume 96.6 fl (80-100); Mean Platelet Volume 10.8 fl (7.4-10.4); Platelet Count Result 148 k/mm3 (150-375); Red Blood Count 4.43 M/mm3 (4.6-6.20); Red Cell Distribution Width 13.2 % (11.5-14.5); White Blood Count 10.7 K/mm3 (4.5-10.0)
[2025-01-22 05:53] LABS: Anion Gap 8 mmol/L (4-12); Blood Urea Nitrogen 15 mg/dL (9-20); Calcium 8.5 mg/dL (8.4-10.2); Carbon Dioxide 25 mmol/L (22-30); Chloride 102 mmol/L (98-107); Estimated CRCL calculation 78 ml/min; Estimated Glomerular Filt Rate > 60; Glucose 117 mg/dL (65-110); Potassium 4.3 mmol/L (3.4-5.0); Sodium 135 mmol/L (137-145)
[2025-01-22] MEDS: FLUTICASONE PROPIONATE 0.05% NA SPR 16 GM BTL (*BKC) 1 SPRAY NASAL (09:42)
[2025-01-22] MEDS: busPIRone HCL 10 MG TABLET PO (09:42)
[2025-01-22] MEDS: DULoxetine HCL 60 MG CAPSULE.DR PO (09:42)
[2025-01-22] MEDS: ENOXAPARIN 40 MG/0.4 ML SYRINGE SUB-Q (09:42)
--- NOTE | 2025-01-22 10:03 | P.PNGS_ITS ---
Progress Note: A&P Assessment and Plan (1) Hiatal hernia: Code(s): K44.9 - Diaphragmatic hernia without obstruction or gangrene Status: Acute Assessment and Plan: * Postop day 1 following robotic-assisted laparoscopic paraesophageal hernia repair * Complaints of diffuse chest pressure overnight and this morning. Will order stat EKG * Advance to full liquids (2) GERD (gastroesophageal reflux disease): Qualifiers: Esophagitis presence: esophagitis presence not specified Qualified Code(s): K21.9 - Gastro-esophageal reflux disease without esophagitis Code(s): K21.9 - Gastro-esophageal reflux disease without esophagitis Status: Acute Plan I have discussed the patient's case and plan of care with Dr. Worley. Subjective Subjective Date/Time Seen: 01/22/25 10:03 Post Op day: 1 (Robotic assisted laparoscopic paraesophageal hernia repair) Patient reports: voiding w/o difficulty, flatus and no bowel movement Interval history: Patient denies any abdominal pain. Reports bloating, but no nausea or vomiting. Has been swallowing well, and only had 1 episode of dysphagia with Jell-O this morning. Otherwise he is swallowing liquids well and did well with dinner last night. Urinating without any difficulty. He does report overnight developing diffuse chest pain. He points across his entire chest and reports is a mild pain, but feels like pressure as though someone is sitting on his chest. No shortness of breath. The chest pressure is not aggravated by any movement or exertion. Review of Systems Review of Systems: All systems reviewed & are unremarkable except as noted in HPI and below Exam Const: General: comfortable and no acute distress Orientation/consciousness: patient oriented x3 Chest: Chest palpation & inspection: normal inspection of the chest Resp: Effort & Inspection: normal respiratory effort Auscultation: clear to auscultation bilaterally Cardio: Rate: regular rate Rhythm: regular rhythm GI: Inspection: non-distended and incision (dry and glue intact) GI Palp: Yes Soft to palpation, No Tenderness to palpation present (GI), No Guarding due to palpation present (GI) and No Rebound tenderness present Auscultation: Hypoactive bowel sounds present Extrem: General: no calf tenderness and no edema Objective Data Vital Signs Vital Signs: Vital Signs - 24 hr 01/21/25 15:24 01/21/25 15:35 01/21/25 15:50 Temperature 97.5 F L Pulse Rate 66 60 60 Respiratory Rate 14 12 12 Blood Pressure 113/63 121/66 121/78 Pulse Oximetry 92 97 97 Oxygen Delivery Simple Face Mask Simple Face Mask Simple Face Mask Oxygen Flow Rate 8 8 8 01/21/25 16:05 01/21/25 16:20 01/21/25 16:35 Temperature Pulse Rate 68 66 55 L Respiratory Rate 14 12 12 Blood Pressure 108/61 128/74 133/86 Pulse Oximetry 97 94 94 Oxygen Delivery Room Air Room Air Room Air Oxygen Flow Rate 01/21/25 16:50 01/21/25 17:00 01/21/25 17:20 Temperature Pulse Rate 64 72 Respiratory Rate 18 18 Blood Pressure 143/80 H 155/82 H Pulse Oximetry 94 94 Oxygen Delivery Room Air Room Air Room Air Oxygen Flow Rate 01/21/25 17:20 01/21/25 17:35 01/21/25 18:05 Temperature 97.3 F L 97.5 F L 97.6 F Pulse Rate 57 L 68 74 Respiratory Rate 16 16 18 Blood Pressure 142/74 H 140/74 131/74 Pulse Oximetry 97 97 97 Oxygen Delivery Oxygen Flow Rate 01/21/25 19:05 01/21/25 20:00 01/21/25 20:10 Temperature 97.3 F L 98.5 F Pulse Rate 80 76 Respiratory Rate 14 18 Blood Pressure 143/85 H 147/85 H Pulse Oximetry 98 95 Oxygen Delivery Room Air Oxygen Flow Rate 01/21/25 23:15 01/22/25 04:05 Temperature 98.4 F 97.2 F L Pulse Rate 80 72 Respiratory Rate 18 18 Blood Pressure 142/80 H 115/53 L Pulse Oximetry 96 95 Oxygen Delivery Oxygen Flow Rate Intake/Output Intake/Output: Intake & Output 01/20/25 01/20/25 01/21/25 01/22/25 00:59 23:59 23:59 23:59 Intake Total 450 780 Balance 450 780 Meds/Results Medications: Active Medications Generic Name Dose Route Start Last Admin Trade Name Freq PRN Reason Stop Dose Admin Buspirone HCl 10 mg 01/22/25 09:00 01/22/25 09:42 Buspirone Hcl 10 Mg Tablet PO 10 mg DAILY SHADIA Administration Duloxetine HCl 60 mg 01/22/25 09:00 01/22/25 09:42 Duloxetine Hcl 60 Mg Capsule.Dr PO 60 mg DAILY SHADIA Administration Enoxaparin Sodium 40 mg 01/22/25 09:00 01/22/25 09:42 Enoxaparin 40 Mg/0.4 Ml Syringe SUB-Q 40 mg DAILY SHADIA Administration Fluticasone Propionate 1 spray 01/22/25 09:00 01/22/25 09:42 Fluticasone Propionate 0.05% Na Spr 16 Gm Btl (*Bkc) NASAL 1 spray DAILY SHADIA Administration Hydromorphone HCl 1 mg 01/21/25 17:03 Hydromorphone Hcl Inj (*Crx) 1 Mg/Ml Syr IV PUSH Q2H PRN Breakthrough Pain Rated 7-10 or NPO Hydromorphone HCl 0.5 mg 01/21/25 17:03 Hydromorphone Hcl Inj (*Crx) 1 Mg/Ml Syr IV PUSH Q2H PRN Breakthrough Pain Rated 4-6 or NPO Ibuprofen 800 mg in 200 mls @ 400 mls/hr 01/21/25 17:03 Caldolor 800 Mg/200 Ml IVPB Q6H PRN Breakthrough Pain Rated 1-3 or NPO Naloxone HCl 0.1 mg 01/21/25 17:03 Naloxone Hcl 0.4 Mg/Ml Vial IV PUSH Q2M PRN Opiate Reversal Ondansetron HCl 4 mg 01/21/25 17:03 Ondansetron Inj 4 Mg/2 Ml Vial IV PUSH Q4H PRN Nausea And Vomiting Oxycodone HCl 2.5 mg 01/21/25 17:03 Oxycodone Hcl (*Crx) 2.5 Mg Tab Ir PO Q4H PRN Pain Rated 4-6 Oxycodone HCl 5 mg 01/21/25 17:03 Oxycodone Hcl (*Crx) 5 Mg Tab Ir PO Q4H PRN Pain Rated 7-10 Labs Labs: Laboratory Results - last 24 hr 01/22/25 05:21 WBC 10.7 H RBC 4.43 L Hgb 14.3 Hct 42.8 MCV 96.6 MCH 32.3 MCHC 33.4 RDW 13.2 Plt Count 148 L MPV 10.8 H Sodium 135 L Potassium 4.3 Chloride 102 Carbon Dioxide 25 Anion Gap 8 BUN 15 Creatinine 0.94 Estim Creat Clear Calc 78 Estimated GFR > 60 Glucose 117 H Calcium 8.5
--- NOTE | 2025-01-22 10:04 | ECG_ITS ---
Test Date: 2025-01-22 10:08:40 Measurements Intervals Dwight Rate: 70 P: 15 WI: 156 QRS: 7 QRSD: 99 T: 30 QT: 394 QTc: 427 Interpretive Statements SINUS RHYTHM NONSPECIFIC T-WAVE ABNORMALITY No previous ECG available for comparison Electronically Signed On 01-22-2025 13:43:58 CDT by Colin Russo M.D.
[2025-01-22 10:38] VITALS: BP 123/65; PULSE 60; RESP 18; TEMP 36.8; O2SAT 98
[2025-01-22] MEDS: IBUPROFEN IV 800 MG/200 ML 800 MG/200 ML BAG 400 MG IVPB (13:10)
== END 2025-01-22 15:10 | disposition home or self-care (01) ==
LOC: ANHSURGERY 09:34 → ANH3MEDSUR 17:07
PROVIDERS: PCP Clinical Nurse Specialist; Visit Provider Surgery
PROC: 0DV44ZZ Restriction of Esophagogastric Junction, Percutaneous Endoscopic Approach (ICD-10-PCS; CPT 43280; principal; 2025-01-21 11:30)
DX: K44.9 Diaphragmatic hernia without obstruction or gangrene (principal); K21.9 Gastro-esophageal reflux disease without esophagitis; F41.9 Anxiety disorder, unspecified; Z98.890 Other specified postprocedural states; Z98.1 Arthrodesis status; Z85.820 Personal history of malignant melanoma of skin; Z80.1 Family history of malignant neoplasm of trachea, bronchus and lung; Z82.49 Family history of ischemic heart disease and other diseases of the circulatory system
CPT/HCPCS: 43281; S2900; 36415; 80048; 85027; 93005; A9270; J0690; J1100; J1650; J1741; J1885; J2250; J2270; J2371; J2704; J7030; J7120

== ENCOUNTER 2025-02-12 12:51 | Outpatient (CLI) | payer OTHER, SELFPAY ==
--- NOTE | ~2025-02-12 | XR_ITS ---
XR knee LT 3V 02/12/2025 13:06 INDICATION: Left knee pain PROCEDURE: 3 views left knee COMPARISON: No prior studies for comparison. FINDINGS: Fracture, dislocation or subluxation is not identified. No joint effusion. The soft tissues appear within normal limits. No foreign bodies are identified. IMPRESSION: 1: NO ACUTE BONE OR JOINT ABNORMALITY IDENTIFIED. Reviewed, dictated and finalized at location A.
== END 2025-02-12 12:52 | disposition home or self-care (01) ==
LOC: MICIMG 12:53
PROVIDERS: PCP Clinical Nurse Specialist; Visit Provider Clinical Nurse Specialist
DX: M25.562 Pain in left knee (principal)
CPT/HCPCS: 73562

== ENCOUNTER 2025-03-28 13:13 | Emergency (ER) | payer OTHER, SELFPAY | END 2025-03-28 13:52 | disposition home or self-care (01) | PROVIDERS: Emergency Provider Nurse Practitioner Family; PCP Clinical Nurse Specialist | DX: R21 Rash and other nonspecific skin eruption (principal) | CPT/HCPCS: 99213; G0463 ==